=== PATIENT | female | born 1980 | race African-American/Black ===

== ENCOUNTER 2016-10-13 16:01 | Inpatient (IN) | payer MEDICAID ==
[2016-10-13] VITALS (7 sets, daily range): BP systolic 121–167; BP diastolic 57–85; PULSE 50–62; RESP 14; TEMP 98; O2SAT 100
[~2016-10-13] VITALS: Ht 167.6 cm; Wt 77.0 kg
[2016-10-13 16:13] LABS: MEAN CORPUSCULAR HGB CONC 36.2 % (32.0-36.0)
--- NOTE | 2016-10-13 16:20 | PD ---
HPI Chief Complaint: trauma alert Time Seen by Provider: 16:03 Travel History International Travel<30 days: No Contact w/Intl Traveler<30days: No Traveled to known affect area: No History of Present Illness HPI 37 years old female was brought in from home after patient was found unresponsive in the bathroom. EMS was called. Family states that patient collapsed in the bathroom. Family states that no illicit drug involvement. Family reported no history of seizure. Unknown whether patient had head injury upon the fall. Patient very drowsy on the way to the ED. GCS at the scene was 12. Review of Systems ROS Limitations: Altered Mental Status General / Constitutional: No: Fever Eyes: No: Visual changes HENT: No: Headaches Cardiovascular: No: Chest Pain or Discomfort Respiratory: No: Shortness of Breath Gastrointestinal: No: Abdominal Pain Genitourinary: No: Dysuria Musculoskeletal: No: Pain Skin: No Rash Neurologic: No: Weakness Psychiatric: No: Depression Endocrine: No: Polydipsia Hematologic/Lymphatic: No: Easy Bruising Physical Exam Narrative GENERAL: Well-nourished, well-developed patient. SKIN: Focused skin assessment warm/dry. HEAD: Normocephalic. EYES: No scleral icterus. No injection or drainage. Pupils 2 mm equal reactive. NECK: Supple, trachea midline. No JVD or lymphadenopathy. CARDIOVASCULAR: Regular rate and rhythm without murmurs, gallops, or rubs. RESPIRATORY: Breath sounds equal bilaterally. No accessory muscle use. GASTROINTESTINAL: Abdomen soft, non-tender, nondistended. MUSCULOSKELETAL: No cyanosis, or edema. BACK: Nontender without obvious deformity. No CVA tenderness. Neurologic exam: Patient is lethargic, responded to pain stimuli. Patient does not respond to verbal commands. Data Data Last Documented VS Vital Signs Date Time Temp Pulse Resp B/P Pulse Ox O2 Delivery O2 Flow Rate FiO2 10/13/16 16:00 100 Nasal Cannula 2.00 Orders Ed Poc Ultrasound (10/13/16 ) I-Stat Profile (10/13/16 16:11) I-Stat Creatinine (10/13/16 16:11) Complete Blood Count With Diff (10/13/16 16:11) Prothrombin Time / Inr (Pt) (10/13/16 16:11) Act Partial Throm Time (Ptt) (10/13/16 16:11) Type And Screen (10/13/16 16:11) Chest, Single Ap (10/13/16 16:11) Pelvis, Ap Only (Routine) (10/13/16 16:11) Ct Brain W/O Iv Contrast(Rout) (10/13/16 16:11) Ct Cerv Spine W/O Contrast (10/13/16 16:11) Ct Abd/Pel W Iv Contrast(Rout) (10/13/16 16:11) Ct Thorax/ Chest W Iv Contrast (10/13/16 16:11) Iv Access Insert/Monitor (10/13/16 16:11) Ecg Monitoring (10/13/16 16:11) Oximetry (10/13/16 16:11) Oxygen Administration (10/13/16 16:11) Cta Brain W Iv Contrast W 3d (10/13/16 ) Midazolam Inj (Versed Inj) (10/13/16 16:27) Labs Laboratory Tests Test 10/13/16 16:02 White Blood Count 16.4 TH/MM3 Red Blood Count 4.49 MIL/MM3 Hemoglobin 13.1 GM/DL Bedside Hemoglobin 13.6 G/DL Hematocrit 36.1 % Bedside Hematocrit 40.0 % Mean Corpuscular Volume 80.5 FL Mean Corpuscular Hemoglobin 29.2 PG Mean Corpuscular Hemoglobin 36.2 % Concent Red Cell Distribution Width 14.0 % Platelet Count 320 TH/MM3 Mean Platelet Volume 8.7 FL Neutrophils (%) (Auto) 56.6 % Lymphocytes (%) (Auto) 35.2 % Monocytes (%) (Auto) 6.7 % Eosinophils (%) (Auto) 1.2 % Basophils (%) (Auto) 0.3 % Neutrophils # (Auto) 9.3 TH/MM3 Lymphocytes # (Auto) 5.8 TH/MM3 Monocytes # (Auto) 1.1 TH/MM3 Eosinophils # (Auto) 0.2 TH/MM3 Basophils # (Auto) 0.0 TH/MM3 CBC Comment AUTO DIFF Prothrombin Time 11.0 SEC Prothromb Time International 1.0 RATIO Ratio Activated Partial 23.0 SEC Thromboplast Time Bedside Sodium 141 MMOL/L Bedside Potassium 2.6 MMOL/L Bedside Chloride 104 MMOL/L Bedside Blood Urea Nitrogen 8 MG/DL Bedside Creatinine 0.6 MG/DL Bedside Glucose 156 MG/DL MDM Medical Screen Exam Complete: Yes Emergency Medical Condition: Yes Differential Diagnosis Differential diagnosis including head injury, neck injury, chest injury, abdominal injury, extremity injury, CVA, seizure. Narrative Course 37 years old female was found unresponsive and collapsed in the bathroom. GCS in the ED is 11. Procedures Procedure Narrative After the risks and benefits were discussed the following procedure was performed: INTUBATION: The patient was put in optimal position for the procedure. Rapid sequence intubation was initiated by me using 20 milligrams of etomidate IV and 100 milligrams of succinylcholine IV. The patient was intubated with a 7.5 cuffed endotracheal tube. Tube placement was confirmed by visualization of the tube and balloon passing through the cords, capnometry and subsequent chest x- ray. Breath sounds were equal and well aerated bilaterally postintubation. No breath sounds over stomach. Patient tolerated procedure well. Trauma Alert - Level Two Trauma Alert Level Two: Full trauma team activate Time Surgeon Called: 15:50 Diagnosis Diagnosis: Primary Impression: Intracranial hemorrhage Damon Kaba MD Oct 13, 2016 16:20
[2016-10-13 16:24] LABS: AUTOMATED NEUTROPHIL # 9.3 TH/MM3 (1.8-7.7); BASOPHIL % 0.3 % (0.0-2.0); EOSINOPHIL # 0.2 TH/MM3 (0-0.4); EOSINOPHIL % 1.2 % (0.0-4.0); HEMATOCRIT 36.1 % (35.0-46.0); LYMPH % 35.2 % (9.0-44.0); LYMPHOCYTE # 5.8 TH/MM3 (1.0-4.8); MEAN CELL VOLUME 80.5 FL (80.0-100.0); MEAN CORPUSCULAR HEMOGLOBIN 29.2 PG (27.0-34.0); MONO % 6.7 % (0.0-8.0); NEUT % 56.6 % (16.0-70.0); PLATELET COUNT 320 TH/MM3 (150-450); RED BLOOD COUNT 4.49 MIL/MM3 (4.00-5.30); WHITE BLOOD COUNT 16.4 TH/MM3 (4.0-11.0)
[2016-10-13 16:26] LABS: I-STAT POTASSIUM 2.6 MMOL/L (3.5-4.9)
[2016-10-13] MEDS ORDERED: MIDAZOLAM HCL 5 MG/ML VIAL (1 ML) ONE (16:27)
[2016-10-13 16:30] LABS: HEMO FLAGS AUTO DIFF
--- NOTE | 2016-10-13 16:36 | RADRPT ---
EXAM DATE/TIME: 10/13/2016 15:54 [facility] COMPARISON: No previous studies available for comparison. INDICATIONS : Trauma alert, fall in shower, AMS. MEDICAL HISTORY : None. SURGICAL HISTORY : None. ENCOUNTER: Initial ACUITY: 1 day PAIN SCORE: Non-responsive. LOCATION: Bilateral chest FINDINGS: A single view of the chest demonstrates the lungs to be symmetrically aerated without evidence of mas s, infiltrate or effusion. The cardiomediastinal contours are unremarkable. Osseous structures are intact. CONCLUSION: No acute disease. Maco Mason MD on October 13, 2016 at 16:29 Board Certified Radiologist. This report was verified electronically.
--- NOTE | 2016-10-13 16:42 | RADRPT ---
EXAM DATE/TIME: 10/13/2016 15:54 [facility] COMPARISON: No previous studies available for comparison. INDICATIONS : Trauma alert, fall in shower, AMS. MEDICAL HISTORY : None. SURGICAL HISTORY : None. ENCOUNTER: Initial ACUITY: 1 day PAIN SCORE: Non-responsive. LOCATION: Bilateral pelvis. FINDINGS: A single frontal view of the pelvis demonstrates no evidence of fracture. The bony pelvic ring is in tact. Bony mineralization is normal. The soft tissues are intact. CONCLUSION: No acute disease. Maco Mason MD on October 13, 2016 at 16:40 Board Certified Radiologist. This report was verified electronically.
[2016-10-13] MEDS ORDERED: IOHEXOL 350 MG/ML 10 ML VIAL (for RAD DIAG) IV ONE ×3 (16:44→22:31)
[2016-10-13] MEDS ORDERED: MANNITOL INJ 50 ML ONE (16:44)
[2016-10-13] MEDS ORDERED: fentaNYL DRIP 250 ML ONE (16:47)
--- NOTE | 2016-10-13 16:55 | HHI.HP ---
History of Present Illness Primary Care Physician Admission Diagnosis Diagnoses: History of Present Illness 37-year-old female was found down in the in the bathroom by her family. As potential fall with trauma could not be excluded by EMS she was brought in as a trauma alert. She had been hemodynamically normal doing the transfer with a GCS of 11-12. On arrival GCS is 11 ,hemodynamically normal-she was brought after a trauma workup in the trauma bay immediately to CT scan for workup as clinically this appears to be likely medical bleed. Review of Systems ROS Limitations: Clinical Condition, Altered Mental Status, Unresponsive, Uncooperative Past Family Social History Past Medical History cannot be obtained Past Surgical History Cannot be obtained Reported Medications Cannot be obtained Family History cannot be obtained Social History cannot be obtained Physical Exam Vital Signs Vital Signs Date Time Temp Pulse Resp B/P Pulse Ox O2 Delivery O2 Flow Rate FiO2 10/13/16 16:00 100 Nasal Cannula 2.00 Physical Exam GENERAL: This is a well-nourished, well-developed patient, in moderate distress. SKIN: No rashes, ecchymoses or lesions. Cool and dry. HEAD: Atraumatic. Normocephalic. EYES: Pupils equal round and reactive. ENT: Nose without bleeding, purulent drainage or septal hematoma.. Airway patent. NECK: Trachea midline. c collar CARDIOVASCULAR: Regular rate and rhythm without murmurs, gallops, or rubs. RESPIRATORY: Clear to auscultation. Breath sounds equal bilaterally. No wheezes , rales, or rhonchi. GASTROINTESTINAL: Abdomen soft, non-tender, nondistended.. No guarding. MUSCULOSKELETAL: Extremities without clubbing, cyanosis, or edema. No joint tenderness, effusion, or edema noted. NEUROLOGICAL: Awake and alert. gcs 11-fluctuating up to 13 Laboratory Laboratory Tests Test 10/13/16 16:02 White Blood Count 16.4 Red Blood Count 4.49 Hemoglobin 13.1 Bedside Hemoglobin 13.6 Hematocrit 36.1 Bedside Hematocrit 40.0 Mean Corpuscular Volume 80.5 Mean Corpuscular Hemoglobin 29.2 Mean Corpuscular Hemoglobin 36.2 Concent Red Cell Distribution Width 14.0 Platelet Count 320 Mean Platelet Volume 8.7 Neutrophils (%) (Auto) 56.6 Lymphocytes (%) (Auto) 35.2 Monocytes (%) (Auto) 6.7 Eosinophils (%) (Auto) 1.2 Basophils (%) (Auto) 0.3 Neutrophils # (Auto) 9.3 Lymphocytes # (Auto) 5.8 Monocytes # (Auto) 1.1 Eosinophils # (Auto) 0.2 Basophils # (Auto) 0.0 CBC Comment AUTO DIFF Prothrombin Time 11.0 Prothromb Time International 1.0 Ratio Activated Partial 23.0 Thromboplast Time Bedside Sodium 141 Bedside Potassium 2.6 Bedside Chloride 104 Bedside Blood Urea Nitrogen 8 Bedside Creatinine 0.6 Bedside Glucose 156 Blood Type O POSITIVE Result Diagram: 10/13/16 1602 Assessment and Plan Assessment and Plan SAH- secondary due ruptured aneurysm finish CT A brain Patient intubated in CT scan by the EM attending to finish workup no traumatic issues suggest stat NS/IR consult Eleni Martinez MD Oct 13, 2016 16:55
[2016-10-13] MEDS ORDERED: PROPOFOL 1000 MG/100 ML INJ 100 ML ONE (16:56)
--- NOTE | 2016-10-13 17:05 | RADRPT ---
EXAM DATE/TIME: 10/13/2016 16:20 [facility] COMPARISON: No previous studies available for comparison. INDICATIONS : Trauma,fell in shower, unresponsive. IV CONTRAST: 75 cc Omnipaque 350 (iohexol) IV ; Cumulative dose for multiple exams. RADIATION DOSE: 18.18 CTDIvol (mGy) ; Combined studies - Thorax/Abdomen/Pelvis MEDICAL HISTORY : Non-responsive. SURGICAL HISTORY : Non-responsive. ENCOUNTER: Initial ACUITY: 1 day PAIN SCALE: Non-responsive LOCATION: Bilateral chest TECHNIQUE: Volumetric scanning of the chest was performed. Using automated exposure control and adjustment of t he mA and/or kV according to patient size, radiation dose was kept as low as reasonably achievable to obtain optimal diagnostic quality images. DICOM format image data is available electronically for review and comparison. Follow-up recommendations for incidentally detected pulmonary nodules are based at a minimum on nodul e size and patient risk factors according to Fleischner Society Guidelines. FINDINGS: LUNGS: There is no consolidation or pneumothorax. No concerning pulmonary nodule is visualized. PLEURA: There is no pleural thickening or pleural effusion. MEDIASTINUM: The heart and great vessels demonstrate no acute abnormality. There is no mediastinal or hilar lymph adenopathy. AXILLAE: Within normal limits. No lymphadenopathy. SKELETAL: Within normal limits for patient age. MISCELLANEOUS: The visualized upper abdominal organs demonstrate no acute abnormality. CONCLUSION: No acute disease. Bakari Hutchins MD on October 13, 2016 at 17:02 Board Certified Radiologist. This report was verified electronically.
--- NOTE | 2016-10-13 17:06 | RADRPT ---
EXAM DATE/TIME: 10/13/2016 16:20 [facility] COMPARISON: No previous studies available for comparison. INDICATIONS : Trauma, fell in shower, unresponsive. IV CONTRAST: 75 cc Omnipaque 350 (iohexol) IV ; Cumulative dose for multiple exams. ORAL CONTRAST: No oral contrast ingested. RADIATION DOSE: 18.18 CTDIvol (mGy) ; Combined studies - Thorax/Abdomen/Pelvis MEDICAL HISTORY : Non-responsive. SURGICAL HISTORY : Non-responsive. ENCOUNTER: Initial ACUITY: 1 day PAIN SCALE: Non-responsive LOCATION: abdomen/pelvis TECHNIQUE: Volumetric scanning of the abdomen and pelvis was performed. Using automated exposure control and ad justment of the mA and/or kV according to patient size, radiation dose was kept as low as reasonably achievable to obtain optimal diagnostic quality images. DICOM format image data is available electro nically for review and comparison. FINDINGS: LOWER LUNGS: The visualized lower lungs are clear. LIVER: Homogeneous density without lesion. There is no dilation of the biliary tree. No calcified gallston es. SPLEEN: Normal size without lesion. PANCREAS: Within normal limits. KIDNEYS: Normal in size and shape. There is no mass, stone or hydronephrosis. ADRENAL GLANDS: Within normal limits. VASCULAR: There is no aortic aneurysm. BOWEL/MESENTERY: The stomach, small bowel, and colon demonstrate no acute abnormality. There is no free intraperitone al air or fluid. ABDOMINAL WALL: Within normal limits. RETROPERITONEUM: There is no lymphadenopathy. BLADDER: No wall thickening or mass. REPRODUCTIVE: Within normal limits. INGUINAL: There is no lymphadenopathy or hernia. MUSCULOSKELETAL: Within normal limits for patient age. CONCLUSION: No acute disease. Bakari Hutchins MD on October 13, 2016 at 17:04 Board Certified Radiologist. This report was verified electronically.
[2016-10-13 17:09] LABS: BANDS 2 % (0-6); EOSINOPHILS 3 % (0-4); METAMYELOCYTES 1 % (0-1); NEUTROPHIL # MANUAL DIFF 8.7 TH/MM3 (1.8-7.7); PLATELET ESTIMATE SMEAR NORMAL (NORMAL); PLATELET MORPHOLOGY NORMAL (NORMAL); POLYS (SEG NEUTROPHILS) 50 % (16-70); SCAN/DIFF FINAL DIFF MANUAL; WBC DIFF SAMPLE 100
[2016-10-13] MEDS ORDERED: niMODipine 30 MG CAP PO ONE (17:30)
[2016-10-13] MEDS ORDERED: levETIRAcetam 1000 MG INJ 100 ML IV ONE (17:30)
--- NOTE | 2016-10-13 17:33 | RADRPT ---
EXAM DATE/TIME: 10/13/2016 16:14 [facility] COMPARISON: CTA BRAIN W 3D RECON, October 13, 2016, 16:35. INDICATIONS : Found unresponsive in shower. RADIATION DOSE: 35.43 CTDIvol (mGy) MEDICAL HISTORY : Non-responsive. SURGICAL HISTORY : Non-responsive. ENCOUNTER: Initial ACUITY: 1 day PAIN SCALE: Non-responsive LOCATION: cranial TECHNIQUE: Multiple contiguous axial images were obtained of the head. Using automated exposure control and adj ustment of the mA and/or kV according to patient size, radiation dose was kept as low as reasonably a chievable to obtain optimal diagnostic quality images. DICOM format image data is available electro nically for review and comparison. FINDINGS: There is significant subarachnoid blood present in the paramesencephalic cisterns, inter-peduncular c istern, sylvian fissures, inter-hemispheric fissure and some degree of layering over the convexities, more notably on the left than the right. There is no evidence of intracranial mass. There is no defi nite findings to suggest developing infarct. The extracranial structures are grossly intact. CONCLUSION: Diffuse subarachnoid blood. Maco Mason MD on October 13, 2016 at 17:29 Board Certified Radiologist. This report was verified electronically.
--- NOTE | 2016-10-13 17:37 | RADRPT ---
EXAM DATE/TIME: 10/13/2016 16:14 [facility] COMPARISON: No previous studies available for comparison. INDICATIONS : Trauma, fell in shower, unresponsive. RADIATION DOSE: 17.93 CTDIvol (mGy) MEDICAL HISTORY : Non-responsive. SURGICAL HISTORY : Non-responsive. ENCOUNTER: Initial ACUITY: 1 day PAIN SCALE: Non-responsive LOCATION: neck TECHNIQUE: Volumetric scanning of the cervical spine was performed. Multiplanar reconstructions in the sagittal, coronal and oblique axial planes were performed. Using automated exposure control and adjustment o f the mA and/or kV according to patient size, radiation dose was kept as low as reasonably achievable to obtain optimal diagnostic quality images. DICOM format image data is available electronically f or review and comparison. FINDINGS: The alignment is normal. There is no evidence of cervical spine fracture. No bony canal or foraminal stenosis is identified. There is no evidence of paraspinal hematoma. CONCLUSION: No acute bony injury in the cervical spine. Maco Mason MD on October 13, 2016 at 17:34 Board Certified Radiologist. This report was verified electronically.
[2016-10-13 17:39] LABS: BLOOD GAS BASE EXCESS -7.7 mmol/L (-2-2); BLOOD GAS CARBOXYHEMOGLOBIN 0.7 % (0-4); BLOOD GAS HCO3 17 mmol/L (22-26); BLOOD GAS METHEMOGLOBIN 1.1 % (0-2); BLOOD GAS O2 HGB SATURATION 98 % (90-100); BLOOD GAS OXYGEN CONTENT 17.8 Vol % (12.0-20.0); BLOOD GAS PCO2 35 mmHg (38-42); BLOOD GAS PO2 251 mmHg (61-120); BLOOD GAS TOTAL HGB 12.5 G/DL (12.0-16.0); CRITICAL VALUE NO; DRAW SITE RT RADIAL; FIO2 50 %; NUMBER OF ARTERIAL PUNCTURES 1; OXYGEN DEVICE VENTILATOR; STAT NO; TEMP CORR TO 98.6; ULNAR PULSE PRESENT; VENT SETTINGS SEE COMMENTS
--- NOTE | 2016-10-13 17:43 | RADRPT ---
EXAM DATE/TIME: 10/13/2016 16:35 [facility] COMPARISON: No previous studies available for comparison. INDICATIONS : Trauma alert; fell in shower, unresponsive. IV CONTRAST: 75 cc Omnipaque 350 (iohexol) IV RADIATION DOSE: 22.70 CTDIvol (mGy) MEDICAL HISTORY : Non-responsive. SURGICAL HISTORY : Non-responsive. ENCOUNTER: Initial ACUITY: 1 day PAIN SCALE: Non-responsive LOCATION: cranial TECHNIQUE: Volumetric scanning was performed using a multi-row detector CT scanner. The data was post processed with a variety of visualization algorithms including full volume maximum intensity projection, multi -planar sliding thin slab reformation, curved planar reformation, and surface rendering techniques. Using automated exposure control and adjustment of the mA and/or kV according to patient size, radiat ion dose was kept as low as reasonably achievable to obtain optimal diagnostic quality images. DICO M format image data is available electronically for review and comparison. FINDINGS: Significant amount of subarachnoid blood is identified in the basilar cisterns. A small thin tubular projection is noted of the left internal carotid terminus. It measures 1.7 x 3.4 cm in size. Moderate to severe spasm is present throughout the proximal intracranial vessels. There is significan t diminished flow is identified in the left middle cerebral artery vessels. No other extraluminal contrast projections are noted. The right posterior cerebral artery originates from the anterior circulation. Moderate diffuse narrowing of the basilar artery is noted. CONCLUSION: 1. 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 2. Moderate to severe vasospasm worse in the left middle cerebral artery distribution. 3. origin of the right posterior cerebral artery. 4. Mild vasospasm vertebrobasilar circulation. Bakari Hutchins MD on October 13, 2016 at 17:31 Board Certified Radiologist. This report was verified electronically.
[2016-10-13] MEDS ORDERED: niCARdipine INJ 25 MG in SODIUM CHLOR 0.9% 250 ML INJ 250 ML IV SCH (17:45)
[2016-10-13] MEDS ORDERED: fentaNYL 2,500 MCG/NS 250 ML IV SCH (17:45)
[2016-10-13] MEDS ORDERED: PROPOFOL 1000 MG/100 ML IV SCH (17:45)
[2016-10-13] MEDS ORDERED: NOREPINEPHRINE 4 MG/4 ML AMP ONE (17:45)
[2016-10-13] MEDS ORDERED: niCARdipine 20MG/NS PREMIX 200 ML IV SCH (17:45)
--- NOTE | 2016-10-13 18:10 | RADRPT ---
EXAM DATE/TIME: 10/13/2016 16:35 [facility] COMPARISON: CTA BRAIN W 3D RECON, October 13, 2016, 16:35. INDICATIONS : Trauma alert; fell in shower, found unresponsive. IV CONTRAST: 75 cc Omnipaque 350 (iohexol) IV ; Cumulative dose for multiple exams. RADIATION DOSE: 22.70 CTDIvol (mGy) ; Combined studies MEDICAL HISTORY : Non-responsive. SURGICAL HISTORY : Non-responsive. ENCOUNTER: Initial ACUITY: 1 day PAIN SCALE: Non-responsive LOCATION: neck Elevated flow velocities and ICA/CCA ratios have been found to correlate with increased degrees of vessel stenosis, calculated as percentage of diameter relative to a normal segment of distal ICA/CCA. TECHNIQUE: Volumetric scanning was performed using a multirow detector CT scanner. The data was post processed with a variety of visualization algorithms including full-volume maximum intensity projection, multip lanar sliding thin-slab reformation, curved-planar reformation, and surface-rendering techniques. Us ing automated exposure control and adjustment of the mA and/or kV according to patient size, radiatio n dose was kept as low as reasonably achievable to obtain optimal diagnostic quality images. DICOM f ormat image data is available electronically for review and comparison. FINDINGS: AORTIC ARCH: There is a three-vessel origin of the great vessels from the aorta. No evidence of ostial narrowing. RIGHT CAROTID: The common carotid artery is intact. The carotid bulb has a normal configuration without ulceration o r narrowing. The internal carotid artery lumen is smooth without stenosis. The external carotid kevin ry is intact. LEFT CAROTID: The common carotid artery is intact. The carotid bulb has a normal configuration without ulceration or narrowing. The internal carotid artery lumen is smooth without stenosis. The external carotid ar angel is intact. VERTEBRALS: The vertebral arteries have a symmetric diameter. No stenotic lesions are seen. CONCLUSION: Normal examination. Maco Mason MD on October 13, 2016 at 17:38 Board Certified Radiologist. This report was verified electronically.
--- NOTE | 2016-10-13 19:24 | RADRPT ---
EXAM DATE/TIME: 10/13/2016 19:06 [facility] COMPARISON: CHEST SINGLE AP, October 13, 2016, 15:54. INDICATIONS : Central line placement. MEDICAL HISTORY : None. SURGICAL HISTORY : None. ENCOUNTER: Subsequent ACUITY: 1 day PAIN SCORE: Non-responsive. LOCATION: Bilateral chest FINDINGS: Endotracheal tube in satisfactory position. Left central line in superior vena cava. NG enters stomac h. Minimal basal atelectasis. No pneumothorax. CONCLUSION: 1. Support apparatus in satisfactory position. Left central line without pneumothorax. Hamlet Fowler MD on October 13, 2016 at 19:20 Board Certified Radiologist. This report was verified electronically.
[2016-10-13] MEDS ORDERED: POTASSIUM CHLOR 40 MEQ PREMIX 100 ML IV ONE (19:45)
--- NOTE | 2016-10-13 22:18 | PD.CONS ---
History of Present Illness Consult Requested By Primary Care Physician Unknown Diagnoses: History of Present Illness 36-year-old female found down on the bathroom floor by her family at her home, unresponsive. GCS reportedly 11-12 in route to the hospital per EMS as well as in the emergency room prior to intubation in the emergency room. CT scan of the head and CT angiogram of the head and neck accomplished while in the emergency room. Findings discussed with emergency room physician while he undersigned was in the operating room. Following CT angiogram, the radiologist came to the operating room to discuss the findings, which revealed positive subarachnoid hemorrhage and primarily the interpeduncular and chiasmatic cistern, bilateral sylvian fissure and interhemispheric fissure. No significant edema or midline shift. No significant hydrocephalus. CT angiogram with probable thin aneurysmal neck at the terminus of the left internal carotid artery with moderate left MCA spasm. Upon completion of surgical procedure with another patient, undersigned notified of 1 mm difference in pupil size. Upon arrival in the intensive care unit shortly thereafter, patient noted to have rapid further increase in pupil size to 6-7 mm dilated nonreactive. No seizure activity noted. Review of Systems Unable to obtain from patient. Patient has had no recent medical complaints according to the family. Past Family Social History Allergies: Coded Allergies: No Known Allergies (Unverified , 10/14/16) Past Medical History No history of hypertension Past Surgical History No major surgical procedures reported Physical Exam Vital Signs Vital Signs Date Time Temp Pulse Resp B/P Pulse Ox O2 Delivery O2 Flow Rate FiO2 10/13/16 20:13 100 40 10/13/16 20:00 58 14 121/57 100 Automatic Cuff 10/13/16 20:00 50 10/13/16 17:45 98.0 62 14 167/85 100 10/13/16 17:21 100 50 10/13/16 16:50 100 100 10/13/16 16:00 100 Nasal Cannula 2.00 Physical Exam GENERAL: This is a well-nourished, well-developed patient, intubated and sedated on propofol SKIN: No rashes, ecchymoses or lesions. Cool and dry. HEAD: Atraumatic. Normocephalic. No temporal or scalp tenderness. EYES: Sclerae are clear and nonicteric ENT: Intubated. No facial edema or ecchymosis NECK: No nuchal rigidity CARDIOVASCULAR: Regular rate and rhythm without murmurs, gallops, or rubs. RESPIRATORY: Clear to auscultation. Breath sounds equal bilaterally. No wheezes , rales, or rhonchi. GASTROINTESTINAL: Abdomen soft, nondistended MUSCULOSKELETAL: Extremities without edema. Posterior tibial pulse 2+ bilateral NEUROLOGICAL: Patient intubated and sedated on propofol No response to voice or deep pain all extremities No eye opening to deep pain Pupils 6-7 mm nonreactive Absent corneal and oculocephalic response Mild cough response Andres's response absent bilateral No ankle clonus Plantar response is neutral Laboratory Laboratory Tests Test 10/13/16 10/13/16 16:02 17:30 White Blood Count 16.4 Red Blood Count 4.49 Hemoglobin 13.1 Bedside Hemoglobin 13.6 Hematocrit 36.1 Bedside Hematocrit 40.0 Mean Corpuscular Volume 80.5 Mean Corpuscular Hemoglobin 29.2 Mean Corpuscular Hemoglobin 36.2 Concent Red Cell Distribution Width 14.0 Platelet Count 320 Mean Platelet Volume 8.7 Neutrophils (%) (Auto) 56.6 Lymphocytes (%) (Auto) 35.2 Monocytes (%) (Auto) 6.7 Eosinophils (%) (Auto) 1.2 Basophils (%) (Auto) 0.3 Neutrophils # (Auto) 9.3 Lymphocytes # (Auto) 5.8 Monocytes # (Auto) 1.1 Eosinophils # (Auto) 0.2 Basophils # (Auto) 0.0 CBC Comment AUTO DIFF Differential Total Cells 100 Counted Neutrophils % (Manual) 50 Band Neutrophils % 2 Lymphocytes % 39 Monocytes % 5 Eosinophils % 3 Neutrophils # (Manual) 8.7 Metamyelocytes 1 Differential Comment FINAL DIFF MANUAL Platelet Estimate NORMAL Platelet Morphology Comment NORMAL Prothrombin Time 11.0 Prothromb Time International 1.0 Ratio Activated Partial 23.0 Thromboplast Time Bedside Sodium 141 Bedside Potassium 2.6 Bedside Chloride 104 Bedside Blood Urea Nitrogen 8 Bedside Creatinine 0.6 Bedside Glucose 156 Magnesium Level 2.1 Blood Type O POSITIVE Antibody Screen NEGATIVE Blood Gas Puncture Site RT RADIAL Blood Gas Patient Temperature 98.6 Blood Gas HCO3 17 Blood Gas Base Excess -7.7 Blood Gas Oxygen Saturation 98 Arterial Blood pH 7.32 Arterial Blood Partial 35 Pressure CO2 Arterial Blood Partial 251 Pressure O2 Arterial Blood Oxygen Content 17.8 Arterial Blood 0.7 Carboxyhemoglobin Arterial Blood Methemoglobin 1.1 Blood Gas Hemoglobin 12.5 Oxygen Delivery Device VENTILATOR Blood Gas Ventilator Setting SEE COMMENTS Blood Gas Inspired Oxygen 50 Result Diagram: 10/13/16 1602 Imaging 10/13/16 CT scan head and cervical spine, and CT angiogram head and neck images are reviewed with radiology. Pelvis X-Ray 10/13/161610 Signed Impressions: Service Date/Time: Thursday, October 13, 2016 15:54 - CONCLUSION: No acute disease. Maco Mason MD Head CT 10/13/161610 Signed Impressions: Service Date/Time: Thursday, October 13, 2016 16:14 - CONCLUSION: Diffuse subarachnoid blood. Maco Mason MD Chest X-Ray 10/13/161610 Signed Impressions: Service Date/Time: Thursday, October 13, 2016 15:54 - CONCLUSION: No acute disease. Maco Mason MD Chest CT 10/13/161610 Signed Impressions: Service Date/Time: Thursday, October 13, 2016 16:20 - CONCLUSION: No acute disease. Bakari Hutchins MD Cervical Spine CT 10/13/161610 Signed Impressions: Service Date/Time: Thursday, October 13, 2016 16:14 - CONCLUSION: No acute bony injury in the cervical spine. Maco Mason MD Abdomen/Pelvis CT 10/13/161610 Signed Impressions: Service Date/Time: Thursday, October 13, 2016 16:20 - CONCLUSION: No acute disease. Bakari Hutchins MD Neck CTA 10/13/16 0000 Signed Impressions: Service Date/Time: Thursday, October 13, 2016 16:35 - CONCLUSION: Normal examination. Maco Mason MD Head CTA 10/13/16 0000 Signed Impressions: Service Date/Time: Thursday, October 13, 2016 16:35 - CONCLUSION: 1. Small tubular aneurysm projecting off the left internal carotid terminus characteristic of a recently ruptured aneurysm which may be partially thrombosed. 2. Moderate to severe vasospasm worse in the left middle cerebral artery distribution. 3. origin of the right posterior cerebral artery. 4. Mild vasospasm vertebrobasilar circulation. Bakari Hutchins MD Assessment and Plan Assessment and Plan Impression: Subarachnoid hemorrhage. 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 Patient is likely to have additional thrombosed aneurysm. Moderate MCA vasospasm on initial CT angiogram. Patient with subsequent rapid change in neurologic exam in the intensive care unit, with rapid progression to fixed dilated pupils. Recommendations: Findings were discussed with the patient's family in intensive surgical care unit. Advised proceeding with ventriculostomy placement in [facility] followed by follow-up CT scan of the head and CT angiogram. The procedure of ventriculostomy placement indications discussed with the patient's . Risks and possible complications discussed. Consent signed and witnessed in the intensive surgical care unit. Initial ventriculostomy placement 2 sites unsuccessful. Dictated separately. Patient taken emergently for follow-up CT scan of the head and CT angiogram of the brain. The CT scan of the head reveals early loss of reese-white interface in both hemispheres primarily along the temporal occipital region. The CT angiogram preliminary results indicates loss of blood flow past the level of the proximal carotid arteries and basilar artery. Findings suggest severe diffuse vasospasm. Discussed with hat presser. Maintain permissive hypertension despite uncontrolled aneurysm. Patient was not felt to be a candidate for endovascular procedure at this institution per initial discussion with radiology. Prior to significant neurologic exam changes, transferred to tertiary care center was anticipated. However due to the patient's extremely poor clinical status and lack of significant cerebral blood flow on follow-up CT angiogram, she is not felt to be stable for transfer or for further interventional treatment. Eder Cristina MD Oct 13, 2016 22:18
--- NOTE | 2016-10-13 22:36 | RADRPT ---
EXAM DATE/TIME: 10/13/2016 22:16 [facility] COMPARISON: No previous studies available for comparison. INDICATIONS : F/U subarachnoid bleed. RADIATION DOSE: 56.35 CTDIvol (mGy) MEDICAL HISTORY : Non-responsive. SURGICAL HISTORY : Non-responsive. ENCOUNTER: Initial ACUITY: 1 day PAIN SCALE: 0/10 LOCATION: cranial TECHNIQUE: Multiple contiguous axial images were obtained of the head. Using automated exposure control and adj ustment of the mA and/or kV according to patient size, radiation dose was kept as low as reasonably a chievable to obtain optimal diagnostic quality images. DICOM format image data is available electro nically for review and comparison. FINDINGS: Comparison is October 13, 1613. Compared with the exam from earlier today there is an increase in subar achnoid hemorrhage seen the basilar and perimesencephalic cisterns extending into the middle cranial fossa bilaterally and into both sylvian fissures and over both convexities including into the interhe mispheric region. There is also trace intra-ventricular hemorrhage. There is a questionable evolving infarct in the left hemisphere predominantly in the left MCA distribution. There is some brain swelli ng and slight decrease in ventricular size. CONCLUSION: 1. There is increase in subarachnoid hemorrhage since exam from earlier today with an increase in bra in swelling and the decrease in ventricular size. Questionable evolving infarct left MCA distribution . Small amount of intraventricular hemorrhage. Hamlet Fowler MD on October 13, 2016 at 22:28 Board Certified Radiologist. This report was verified electronically.
--- NOTE | 2016-10-13 22:54 | PD.CONS ---
[facility] Service Critical Care Medicine Consult Requested By Dr. Rivero Reason for Consult altered mental status Primary Care Physician Unknown History of Present Illness This is a 36yF who presents as a Andra Carnes for altered mental status. she was reportedly found in her bathroom unresponsive. she was initially brought in as a trauma alert. CT brain demonstrated Blackwood 4 SAH. she was transferred to the ICU intubated, hypertensive. I evaluated the patient on arrival to the ICU ( delayed note entry). she is unable to provide any additional history. Review of Systems ROS Limitations: Clinical Condition, Intubated, Altered Mental Status, Unresponsive Past Family Social History Allergies: Coded Allergies: UNOBTAINABLE (Unverified , 10/13/16) Past Medical History unknown and unobtainable secondary to the clinical condition of the patient. Past Surgical History unknown and unobtainable secondary to the clinical condition of the patient. Reported Medications unknown and unobtainable secondary to the clinical condition of the patient. Active Ordered Medications See MAR Family History unknown and unobtainable secondary to the clinical condition of the patient. Social History unknown and unobtainable secondary to the clinical condition of the patient. Physical Exam Vital Signs Vital Signs Date Time Temp Pulse Resp B/P Pulse Ox O2 Delivery O2 Flow Rate FiO2 10/13/16 20:13 100 40 10/13/16 20:00 58 14 121/57 100 Automatic Cuff 10/13/16 20:00 50 10/13/16 17:45 98.0 62 14 167/85 100 10/13/16 17:21 100 50 10/13/16 16:50 100 100 10/13/16 16:00 100 Nasal Cannula 2.00 Physical Exam Middle-aged male, lying in bed, unresponsive, intubated Pupils sluggishly reactive, equal, conjugate Equal chest rise. PRvC. FiO2 40%. GCS 3, RASS -5. Does not withdraw to pain. Does not follow commands. Laboratory Laboratory Tests Test 10/13/16 10/13/16 16:02 17:30 White Blood Count 16.4 Red Blood Count 4.49 Hemoglobin 13.1 Bedside Hemoglobin 13.6 Hematocrit 36.1 Bedside Hematocrit 40.0 Mean Corpuscular Volume 80.5 Mean Corpuscular Hemoglobin 29.2 Mean Corpuscular Hemoglobin 36.2 Concent Red Cell Distribution Width 14.0 Platelet Count 320 Mean Platelet Volume 8.7 Neutrophils (%) (Auto) 56.6 Lymphocytes (%) (Auto) 35.2 Monocytes (%) (Auto) 6.7 Eosinophils (%) (Auto) 1.2 Basophils (%) (Auto) 0.3 Neutrophils # (Auto) 9.3 Lymphocytes # (Auto) 5.8 Monocytes # (Auto) 1.1 Eosinophils # (Auto) 0.2 Basophils # (Auto) 0.0 CBC Comment AUTO DIFF Differential Total Cells 100 Counted Neutrophils % (Manual) 50 Band Neutrophils % 2 Lymphocytes % 39 Monocytes % 5 Eosinophils % 3 Neutrophils # (Manual) 8.7 Metamyelocytes 1 Differential Comment FINAL DIFF MANUAL Platelet Estimate NORMAL Platelet Morphology Comment NORMAL Prothrombin Time 11.0 Prothromb Time International 1.0 Ratio Activated Partial 23.0 Thromboplast Time Bedside Sodium 141 Bedside Potassium 2.6 Bedside Chloride 104 Bedside Blood Urea Nitrogen 8 Bedside Creatinine 0.6 Bedside Glucose 156 Magnesium Level 2.1 Blood Type O POSITIVE Antibody Screen NEGATIVE Blood Gas Puncture Site RT RADIAL Blood Gas Patient Temperature 98.6 Blood Gas HCO3 17 Blood Gas Base Excess -7.7 Blood Gas Oxygen Saturation 98 Arterial Blood pH 7.32 Arterial Blood Partial 35 Pressure CO2 Arterial Blood Partial 251 Pressure O2 Arterial Blood Oxygen Content 17.8 Arterial Blood 0.7 Carboxyhemoglobin Arterial Blood Methemoglobin 1.1 Blood Gas Hemoglobin 12.5 Oxygen Delivery Device VENTILATOR Blood Gas Ventilator Setting SEE COMMENTS Blood Gas Inspired Oxygen 50 Result Diagram: 10/13/16 160 Imaging Last Impressions Pelvis X-Ray 10/13/161610 Signed Impressions: Service Date/Time: Thursday, October 13, 2016 15:54 - CONCLUSION: No acute disease. Maco Mason MD Head CT 10/13/161610 Signed Impressions: Service Date/Time: Thursday, October 13, 2016 16:14 - CONCLUSION: Diffuse subarachnoid blood. Maco Mason MD Chest X-Ray 10/13/161610 Signed Impressions: Service Date/Time: Thursday, October 13, 2016 15:54 - CONCLUSION: No acute disease. Maco Mason MD Chest CT 10/13/161610 Signed Impressions: Service Date/Time: Thursday, October 13, 2016 16:20 - CONCLUSION: No acute disease. Bakari Hutchins MD Cervical Spine CT 10/13/161610 Signed Impressions: Service Date/Time: Thursday, October 13, 2016 16:14 - CONCLUSION: No acute bony injury in the cervical spine. Maco Mason MD Abdomen/Pelvis CT 10/13/16 1611 Signed Impressions: Service Date/Time: Thursday, October 13, 2016 16:20 - CONCLUSION: No acute disease. Bakari Hutchins MD Neck CTA 10/13/16 0000 Signed Impressions: Service Date/Time: Thursday, October 13, 2016 16:35 - CONCLUSION: Normal examination. Maco Mason MD Head CTA 10/13/16 0000 Signed Impressions: Service Date/Time: Thursday, October 13, 2016 16:35 - CONCLUSION: 1. Small tubular aneurysm projecting off the left internal carotid terminus characteristic of a recently ruptured aneurysm which may be partially thrombosed. 2. Moderate to severe vasospasm worse in the left middle cerebral artery distribution. 3. origin of the right posterior cerebral artery. 4. Mild vasospasm vertebrobasilar circulation. Bakari Hutchins MD Assessment and Plan Assessment and Plan Assessment: 36-year-old female post-bleed day 0 status post Jones-Victoria 5, Blackwood 4 aneurysmal subarachnoid hemorrhage. severely critically ill at this time. will start anti-hypertensives, goal sbp < 140. will obtain CTA head/neck, discuss with Dr. Cristina and Dr. Mason. Active Problems: Aneurysmal subarachnoid hemorrhage, Jones-Victoria 5, Blackwood 4 Acute encephalopathy Acute hypoxic and hypercarbic respiratory failure Hypertensive Emergency Plan: admit to ICU goal sbp < 140 nimodipine daily tcds cta head/neck no weaning of mechanical ventilation today. goal spo2 > 90%, hob at [address] art line, central line cardene for target bp dr. Cristina following Critical Care time: 57 minutes, exclusive of separately billable procedures Alexys Rudd MD Oct 13, 2016 22:54
--- NOTE | 2016-10-13 22:55 | PD.PROCEDR ---
Procedure Note Procedure Procedure: Arterial Line Placement Left radial arterial line Diagnosis: Subarachnoid hemorrhage Indications: Need for beat to beat hemodynamic monitoring Consent: Emergent Description of the Procedure: The left wrist was prepped and draped sterilely. 1% lidocaine was used for local anesthesia. Ultrasound guidance was used to locate the left radial artery. The vascular anatomy of the left wrist was normal. Under direct real-time visualization, the artery was cannulated. The pulse was located and a needle was advanced into the artery. A 20 gauge, 12 cm catheter was advanced into the artery using a modified Seldinger technique. The catheter was sutured to the skin and a sterile dressing was applied. The catheter was connected to a pressure transducer and an arterial waveform was noted. There were no immediate complications noted. There was minimal EBL. I personally performed the procedure. Alexys Rudd MD Oct 13, 2016 22:55
--- NOTE | 2016-10-13 22:56 | PD.PROCEDR ---
Procedure Note Procedure Central Line Procedure Note Left subclavian triple lumen catheter Diagnosis: Subarachnoid hemorrhage Indications: Need for highly potent vasoactive substances Consent: Emergent Anesthesia: None Description of the Procedure: The patient was placed in the supine, mild- Trendelenburg position. The area was prepped and draped sterilely. A 19g needle was inserted under negative pressure aspiration and dark venous blood was obtained. A guidewire was inserted easily without resistance. A small incision was made using a #11 blade. Using a modified Seldinger technique, the dilator and 7 [place], 20 cm catheter were advanced over the guidewire without resistance. All ports were aspirated and flushed, and had brisk blood return. The line was secured at 20 centimeter at the skin using 2-0 silk interrupted sutures. A Biopatch and Transparent sterile dressing were applied. There were no immediate complications noted. There was minimal EBL. The patient tolerated the procedure well. A Chest x-ray has been ordered. I personally performed the procedure. Alexys Rudd MD Oct 13, 2016 22:56
--- NOTE | 2016-10-13 23:27 | RADRPT ---
EXAM DATE/TIME: 10/13/2016 22:19 This report includes an Addendum and supersedes previous reports for this exam. [facility] COMPARISON: CTA BRAIN W 3D RECON, October 13, 2016, 16:35. INDICATIONS : F/U subarachoid bleed. IV CONTRAST: 75 cc Omnipaque 350 (iohexol) IV RADIATION DOSE: 19.74 CTDIvol (mGy) MEDICAL HISTORY : Non-responsive. SURGICAL HISTORY : Non-responsive. ENCOUNTER: Initial ACUITY: 1 day PAIN SCALE: Non-responsive LOCATION: cranial TECHNIQUE: Volumetric scanning was performed using a multi-row detector CT scanner. The data was post processed with a variety of visualization algorithms including full volume maximum intensity projection, multi -planar sliding thin slab reformation, curved planar reformation, and surface rendering techniques. Using automated exposure control and adjustment of the mA and/or kV according to patient size, radiat ion dose was kept as low as reasonably achievable to obtain optimal diagnostic quality images. DICO M format image data is available electronically for review and comparison. FINDINGS: Source images from a CT angiogram of the intracranial circulation are provided and demonstrate diffus e subarachnoid hemorrhage greatest in the suprasellar region and left sylvian fissure and MCA region, basilar cisterns. No obvious mass. No midline shift. No fractures. CONCLUSION: 1. Subarachnoid hemorrhage. Limited study. Doug Mariano MD on October 13, 2016 at 23:25 Board Certified Radiologist. This report was verified electronically. ADDENDUM: There is contrast identified within the distal vertebral arteries and basilar artery as well as the P etrus and cavernous internal carotid arteries. Contrast flow within the vasculature distal to this po int is not clearly seen. Doug Mariano MD on October 13, 2016 at 23:29 Board Certified Radiologist. This report was verified electronically.
[2016-10-14] VITALS (18 sets, daily range): BP systolic 102–167; BP diastolic 53–99; PULSE 102–133; RESP 14; TEMP 94.5–97.2; O2SAT 99–100
[2016-10-14] MEDS: SODIUM CHLOR 0.9% 1000 ML INJ 1,000 ML IV SCH ×5 (00:59→20:13)
[2016-10-14] MEDS ORDERED: BISACODYL 10 MG SUPP RECTAL PRN (01:00)
[2016-10-14] MEDS ORDERED: SODIUM CHLORIDE 0.9% FLUSH 10 ML FLUSH IV FLUSH PRN (01:00)
[2016-10-14] MEDS ORDERED: ONDANSETRON HCL 4 MG/2 ML VIAL IV PRN (01:00)
[2016-10-14] MEDS ORDERED: levETIRAcetam INJ 500 MG in SODIUM CHLORIDE 0.9% INJ 100 ML IV ONE (01:00)
[2016-10-14] MEDS ORDERED: ACETAMINOPHEN 325 MG TAB PO PRN (01:00)
[2016-10-14] MEDS ORDERED: MISCELLANEOUS NURSING INFORMATION XX SCH (01:00)
[2016-10-14] MEDS ORDERED: MAGNESIUM HYDROXIDE SUSP 30 ML CUP PO PRN (01:00)
[2016-10-14] MEDS ORDERED: LACTULOSE SYRUP 20 GM/30 ML CUP PO PRN (01:00)
[2016-10-14] MEDS ORDERED: SENNOSIDES 8.6 MG TAB PO PRN (01:00)
[2016-10-14] MEDS ORDERED: RESP: ALBUTEROL 2.5 MG/3 ML NEB (PRN) INH (01:00)
[2016-10-14] MEDS ORDERED: CHLORHEXIDINE GLUCONATE 2 % 1 PACK (2 CLOTHS) TOP PRN (01:00)
--- NOTE | 2016-10-14 01:05 | PD.OP ---
Operative Report Date of Surgery: Oct 13, 2016 Preoperative Diagnosis: (1) Subarachnoid hemorrhage Subarachnoid hemorrhage Postoperative Diagnosis: (1) Subarachnoid hemorrhage Subarachnoid hemorrhage Procedure: Right frontal twist drill for attempted ventriculostomy placement Anesthesia: Intravenous sedation 1% Xylocaine local anesthetic Surgeon: Eder [facility] Rn(s): None Operation and Findings: Indications: 36-year-old female with subarachnoid hemorrhage. No significant hydrocephalus on initial CT scan. Patient with rapid decline in neurologic status with fixed dilated pupils. Due to possibility of progressive hydrocephalus, ventriculostomy catheter placement advised pending follow-up CT and CT angiogram of the brain. Discussed with the patient's family. Procedure, indications, risks and possible complications fully discussed. Consent signed and witnessed in the intensive surgical care unit. The procedure was performed in the surgical intensive care unit. Appropriate timeout procedure was performed with all personnel present and in agreement The patient was placed in supine position with the head and neck in neutral position and the head of the bed elevated approximately 20. The right frontal region was shaved with clippers and sterilely prepped and draped. One percent Xylocaine without epinephrine was used for local infiltration over the small incision site which was made approximately 9-10 cm above the right supraorbital rim, approximately 3-1/2 to 4 cm lateral to the midline, in the mid pupillary line just anterior to the coronal suture. The hand drill was used to make a single twist drill opening in the cranium and the dura was perforated with the trocar. The Codman Bactiseal ventriculostomy catheter was advanced to a depth of 6-7 cm intracranial in 2 separate trajectories with no return of CSF. In order to ensure proper catheter positioning, a second small twist drill opening was made approximately 2 cm medial and posterior to the twist drill opening and the catheter was again passed in 2 separate trajectories without any CSF obtained. The incision was closed with 3-0 nylon suture interrupted. The patient proceeded directly to radiology for CT and CT angiogram of the brain following the procedure. The patient's neurologic exam remained stable following the procedure No specimen was sent There was no significant bleeding Eder Cristina MD Oct 14, 2016 01:05
[2016-10-14 01:06] LABS: BICARBONATE 18.9 MEQ/L (21.0-32.0); MAGNESIUM 2.5 MG/DL (1.5-2.5); POTASSIUM 3.7 MEQ/L (3.5-5.1)
[2016-10-14] MEDS: niMODipine 30 MG CAP PO SCH ×6 (01:49→20:00)
[2016-10-14] MEDS: DESMOPRESSIN ACETATE 4 MCG/ML VIAL SQ SCH ×3 (02:15→20:08)
[2016-10-14] MEDS ORDERED: SODIUM CHLOR 0.9% 1000 ML INJ 1,000 ML IV ONE (02:45)
[2016-10-14] MEDS ORDERED: POTASSIUM PHOSPHATE INJ 15 MMOL in SODIUM CHLORIDE 0.9% INJ 150 ML IV ONE (03:00)
[2016-10-14] MEDS: NOREPINEPHRINE 4 MG/D5W 250 ML IV SCH ×2 (03:00→05:06)
[2016-10-14] MEDS: CHLORHEXIDINE GLUCONATE 2 % 1 PACK (2 CLOTHS) TOP SCH (04:00)
[2016-10-14] MEDS: niMODipine 30 MG CAP NG SCH ×5 (04:20→20:05)
[2016-10-14] MEDS: EPINEPHrine (1:1000) INJ 2 MG in SODIUM CHLOR 0.9% 250 ML INJ 250 ML IV SCH ×4 (05:06→17:00)
[2016-10-14 06:46] LABS: HEMATOCRIT 38.2 % (35.0-46.0); MEAN CELL VOLUME 81.2 FL (80.0-100.0); MEAN CORPUSCULAR HGB CONC 34.5 % (32.0-36.0); PLATELET COUNT 324 TH/MM3 (150-450); RED BLOOD COUNT 4.71 MIL/MM3 (4.00-5.30); RED CELL DISTRIBUTION WIDTH 14.6 % (11.6-17.2); REVIEW FLAG FINAL; WHITE BLOOD COUNT 20.3 TH/MM3 (4.0-11.0)
[2016-10-14 07:31] LABS: BICARBONATE 17.6 MEQ/L (21.0-32.0); MAGNESIUM 2.1 MG/DL (1.5-2.5); POTASSIUM 3.4 MEQ/L (3.5-5.1)
[2016-10-14] MEDS ORDERED: NOREPINEPHRINE 4 MG/4 ML AMP ONE (08:17)
[2016-10-14] MEDS: PANTOPRAZOLE SODIUM 40 MG VIAL IV SCH (08:38)
[2016-10-14] MEDS: levETIRAcetam INJ 500 MG in SODIUM CHLORIDE 0.9% INJ 100 ML IV SCH ×2 (08:38→20:05)
[2016-10-14] MEDS: DOCUSATE SODIUM 50 MG/SENNA 8.6 MG TAB PO SCH ×2 (08:39→20:06)
[2016-10-14] MEDS: ARTIFICIAL TEARS OPTH SOLN 15 ML BTL EACH EYE SCH ×3 (09:00→18:00)
[2016-10-14] MEDS ORDERED: levETIRAcetam INJ 500 MG in SODIUM CHLORIDE 0.9% INJ 100 ML IV SCH (09:00)
[2016-10-14] MEDS: SODIUM CHLORIDE 0.9% FLUSH 10 ML FLUSH IV FLUSH SCH ×2 (09:00→20:12)
[2016-10-14] MEDS ORDERED: [UNRECOGNIZED DRUG - OTHER] IV ONE (09:15)
[2016-10-14] MEDS: NOREPINEPHRINE INJ 4 MG in SODIUM CHLOR 0.9% 250 ML INJ 250 ML IV SCH ×8 (09:22→20:54)
[2016-10-14] MEDS ORDERED: ICU - MAGNESIUM SULFATE 2 GM/NS 100 ML IV PRN ×2 (09:45)
[2016-10-14] MEDS ORDERED: ICU - CALL ORDERING PHYSICIAN PRN (09:45)
[2016-10-14] MEDS ORDERED: ICU - POTASSIUM PHOSPHATE MONOBASIC 500 MG TAB PO PRN (09:45)
[2016-10-14] MEDS ORDERED: ICU - MAGNESIUM OXIDE 400 MG TAB PO PRN (09:45)
[2016-10-14] MEDS ORDERED: ICU - SODIUM PHOSPHATE 30 MMOL/NS 250 ML IV PRN ×2 (09:45)
[2016-10-14] MEDS ORDERED: ICU - POTASSIUM CHLORIDE/AQUEOUS SOLN 20 MEQ/100 ML IVPB IV PRN (09:45)
[2016-10-14] MEDS ORDERED: ICU - POTASSIUM PHOSPHATE 30 MMOL/NS 250 ML IV PRN ×2 (09:45)
[2016-10-14] MEDS ORDERED: ICU - MAGNESIUM SULFATE 4 GM/NS 100 ML IV PRN ×2 (09:45)
[2016-10-14] MEDS ORDERED: ICU - D/C ICU ELECTROLYTE ORDERS PRN (09:45)
[2016-10-14] MEDS ORDERED: INFLUENZA VIRUS VACCINE (QUADRIVALENT) 0.5 ML SYR IM ONE (10:00)
[2016-10-14] MEDS: POTASSIUM CHLORIDE 25 MEQ EFFERVESCENT TAB PO PRN ×2 (10:35→16:55)
--- NOTE | 2016-10-14 15:06 | HHI.NSPN ---
(Dennis Catalan) History Chief Complaint: Unable to obtain due to patient's clinical condition. Unable to obtain due (Dennis Catalan) Interval History 10/13: 36-year-old female found down on the bathroom floor by her family at her home, unresponsive. GCS reportedly 11-12 in route to the hospital per EMS as well as in the emergency room prior to intubation in the emergency room. CT scan of the head and CT angiogram of the head and neck accomplished while in the emergency room. Findings discussed with emergency room physician while he undersigned was in the operating room. Following CT angiogram, the radiologist came to the operating room to discuss the findings, which revealed positive subarachnoid hemorrhage and primarily the interpeduncular and chiasmatic cistern, bilateral sylvian fissure and interhemispheric fissure. No significant edema or midline shift. No significant hydrocephalus. CT angiogram with probable thin aneurysmal neck at the terminus of the left internal carotid artery with moderate left MCA spasm. Upon completion of surgical procedure with another patient, undersigned notified of 1 mm difference in pupil size. Upon arrival in the intensive care unit shortly thereafter, patient noted to have rapid further increase in pupil size to 6-7 mm dilated nonreactive. No seizure activity noted. 10/14: The patient remains intubated and on mechanical ventilation. Nursing reports that she has been unresponsive. She is not on any drips for sedation. Epinephrine and norepinephrine drips are infusing for blood pressure control. ( Dennis Catalan) System Review Comments Unable to obtain due to patient's clinical condition. Unable to obtain due ( Dennis Catalan) Exam Results Vital Signs Date Time Temp Pulse Resp B/P Pulse Ox O2 Delivery O2 Flow Rate FiO2 10/14/16 14:00 123 10/14/16 12:00 97.2 14 158/86 100 10/14/16 11:19 40 10/14/16 07:00 Mechanical Ventilator 10/13/16 16:00 2.00 Intake and Output 10/13/16 10/13/16 10/14/16 08:00 16:00 00:00 Intake Total 224 ml Output Total 1700 ml Balance -1476 ml (Dennis Catalan) Physical Examination GENERAL: Patient is intubated and nonresponsive w/o any sedation. SKIN: Warm, dry & intact, no evident discolouration, rashes, ulcerations or other lesions. HEENT: Right frontal scalp ventriculostomy insertion site w/o any active drainage, erythema or streaking. Pupils fixed & dilated. Orally intubated. OGT. NECK: No JVD, trachea midline. CARDIOVASCULAR: S1S2 w/regular but rapid rate w/o M/G/R, radial & pedal pulses 2 + bilaterally, cap refill < 2 sec, no pedal edema. Monitor is sinus tachycardia w/o any ectopy noted. Epinephrine and norepinephrine drips are infusing for blood pressure control. RESPIRATORY: CTAB w/o W/R/R, equal excursion, nonlaboured, intubated & mechanically ventilated. GASTROINTESTINAL: Abdomen soft, bowel sounds not appreciated, OGT w/enteral feeds. MUSCULOSKELETAL: No evident deformity or clubbing note. NEUROLOGICAL: Intubated w/o sedation, GCS 3T (E1 V1T M1) No response to voice. No response to noxious stimuli to all extremities. No eye opening. Pupils 6 mm nonreactive. Neutral plantar response bilaterally. No cough reflex. (Dennis Catalan) Lab, Micro, Other Results Allergies Coded Allergies Type Severity Reaction Last Updated Verified No Known Allergies 10/14/16 No Recent Impressions Pelvis X-Ray 10/13/161610 Signed Impressions: Service Date/Time: Thursday, October 13, 2016 15:54 - CONCLUSION: No acute disease. Maco Mason MD Head CT 10/13/161610 Signed Impressions: Service Date/Time: Thursday, October 13, 2016 16:14 - CONCLUSION: Diffuse subarachnoid blood. Maco Mason MD Chest X-Ray 10/13/161610 Signed Impressions: Service Date/Time: Thursday, October 13, 2016 15:54 - CONCLUSION: No acute disease. Maco Mason MD Chest CT 10/13/161610 Signed Impressions: Service Date/Time: Thursday, October 13, 2016 16:20 - CONCLUSION: No acute disease. Bakari Hutchins MD Cervical Spine CT 10/13/161 Signed Impressions: Service Date/Time: Thursday, October 13, 2016 16:14 - CONCLUSION: No acute bony injury in the cervical spine. Maco Mason MD Abdomen/Pelvis CT 10/13/16 1611 Signed Impressions: Service Date/Time: Thursday, October 13, 2016 16:20 - CONCLUSION: No acute disease. Bakari Hutchins MD Neck CTA 10/13/16 0000 Signed Impressions: Service Date/Time: Thursday, October 13, 2016 16:35 - CONCLUSION: Normal examination. Maco Mason MD Head CTA 10/13/16 0000 Signed Impressions: Service Date/Time: Thursday, October 13, 2016 22:19 - CONCLUSION: 1. Subarachnoid hemorrhage. Limited study. Doug Mariano MD ADDENDUM: There is contrast identified within the distal vertebral arteries and basilar artery as well as the Yasemin and cavernous internal carotid arteries. Contrast flow within the vasculature distal to this point is not clearly seen. Doug Mariano MD Head CTA 10/13/16 0000 Signed Impressions: Service Date/Time: Thursday, October 13, 2016 16:35 - CONCLUSION: 1. Small tubular aneurysm projecting off the left internal carotid terminus characteristic of a recently ruptured aneurysm which may be partially thrombosed. 2. Moderate to severe vasospasm worse in the left middle cerebral artery distribution. 3. origin of the right posterior cerebral artery. 4. Mild vasospasm vertebrobasilar circulation. Bakari Hutchins MD Head CT 10/13/16 0000 Signed Impressions: Service Date/Time: Thursday, October 13, 2016 22:16 - CONCLUSION: 1. There is increase in subarachnoid hemorrhage since exam from earlier today with an increase in brain swelling and the decrease in ventricular size. Questionable evolving infarct left MCA distribution. Small amount of intraventricular hemorrhage. Hamlet Fowler MD Chest X-Ray 10/13/16 0000 Signed Impressions: Service Date/Time: Thursday, October 13, 2016 19:06 - CONCLUSION: 1. Support apparatus in satisfactory position. Left central line without pneumothorax. Hamlet Fowler MD // 06:00 18:00 06:00 18:00 06:00 18:00 Intake Total 878 ml 5634 ml Output Total 4550 ml 4450 ml Balance -3672 ml 1184 ml Intake IV Total 502 ml 5434 ml Tube Feeding 316 ml Tube Irrigant 200 ml Other 60 ml Output Urine Total 4550 ml 4450 ml # Bowel Movements 0 0 Laboratory Tests Test 10/13/16 10/13/16 10/13/16 10/14/16 16:02 17:30 17:35 00:10 White Blood Count 16.4 TH/MM3 Red Blood Count 4.49 MIL/MM3 Hemoglobin 13.1 GM/DL Bedside Hemoglobin 13.6 G/DL Hematocrit 36.1 % Bedside Hematocrit 40.0 % Mean Corpuscular Volume 80.5 FL Mean Corpuscular Hemoglobin 29.2 PG Mean Corpuscular Hemoglobin 36.2 % Concent Red Cell Distribution Width 14.0 % Platelet Count 320 TH/MM3 Mean Platelet Volume 8.7 FL Neutrophils (%) (Auto) 56.6 % Lymphocytes (%) (Auto) 35.2 % Monocytes (%) (Auto) 6.7 % Eosinophils (%) (Auto) 1.2 % Basophils (%) (Auto) 0.3 % Neutrophils # (Auto) 9.3 TH/MM3 Lymphocytes # (Auto) 5.8 TH/MM3 Monocytes # (Auto) 1.1 TH/MM3 Eosinophils # (Auto) 0.2 TH/MM3 Basophils # (Auto) 0.0 TH/MM3 CBC Comment AUTO DIFF Differential Total Cells 100 Counted Neutrophils % (Manual) 50 % Band Neutrophils % 2 % Lymphocytes % 39 % Monocytes % 5 % Eosinophils % 3 % Neutrophils # (Manual) 8.7 TH/MM3 Metamyelocytes 1 % Differential Comment FINAL DIFF MANUAL Platelet Estimate NORMAL Platelet Morphology Comment NORMAL Prothrombin Time 11.0 SEC Prothromb Time International 1.0 RATIO Ratio Activated Partial 23.0 SEC Thromboplast Time Bedside Sodium 141 MMOL/L Bedside Potassium 2.6 MMOL/L Bedside Chloride 104 MMOL/L Bedside Blood Urea Nitrogen 8 MG/DL Bedside Creatinine 0.6 MG/DL Bedside Glucose 156 MG/DL Magnesium Level 2.1 MG/DL 2.5 MG/DL Blood Type O POSITIVE Antibody Screen NEGATIVE Blood Gas Puncture Site RT RADIAL Blood Gas Patient Temperature 98.6 Blood Gas HCO3 17 mmol/L Blood Gas Base Excess -7.7 mmol/L Blood Gas Oxygen Saturation 98 % Arterial Blood pH 7.32 Arterial Blood Partial 35 mmHg Pressure CO2 Arterial Blood Partial 251 mmHg Pressure O2 Arterial Blood Oxygen Content 17.8 Vol % Arterial Blood 0.7 % Carboxyhemoglobin Arterial Blood Methemoglobin 1.1 % Blood Gas Hemoglobin 12.5 G/DL Oxygen Delivery Device VENTILATOR Blood Gas Ventilator Setting SEE COMMENTS Blood Gas Inspired Oxygen 50 % Nasal Screen MRSA (PCR) MRSA NOT DETECTED Urine Specific [place] 1.008 Urine Osmolality 59 MOSM/KG Urine Random Sodium 13 MEQ/L Sodium Level 142 MEQ/L Potassium Level 3.7 MEQ/L Chloride Level 113 MEQ/L Carbon Dioxide Level 18.9 MEQ/L Anion Gap 10 MEQ/L Blood Urea Nitrogen 6 MG/DL Creatinine 0.80 MG/DL Estimat Glomerular Filtration 99 ML/MIN Rate Random Glucose 159 MG/DL Serum Osmolality 312 MOSM/KG Calcium Level 9.2 MG/DL Phosphorus Level 2.1 MG/DL Test 10/14/16 06:00 White Blood Count 20.3 TH/MM3 Red Blood Count 4.71 MIL/MM3 Hemoglobin 13.2 GM/DL Hematocrit 38.2 % Mean Corpuscular Volume 81.2 FL Mean Corpuscular Hemoglobin 28.0 PG Mean Corpuscular Hemoglobin 34.5 % Concent Red Cell Distribution Width 14.6 % Platelet Count 324 TH/MM3 Mean Platelet Volume 8.5 FL Sodium Level 148 MEQ/L Potassium Level 3.4 MEQ/L Chloride Level 120 MEQ/L Carbon Dioxide Level 17.6 MEQ/L Anion Gap 10 MEQ/L Blood Urea Nitrogen 5 MG/DL Creatinine 0.72 MG/DL Estimat Glomerular Filtration 112 ML/MIN Rate Random Glucose 227 MG/DL Calcium Level 8.2 MG/DL Phosphorus Level 0.3 MG/DL Magnesium Level 2.1 MG/DL Vital Signs Date Time Temp Pulse Resp B/P Pulse Ox O2 Delivery O2 Flow Rate FiO2 10/14/16 14:00 123 10/14/16 12:00 97.2 124 14 158/86 100 10/14/16 12:00 109 10/14/16 11:19 100 40 10/14/16 10:00 123 10/14/16 08:00 133 10/14/16 08:00 96.3 124 14 102/53 100 10/14/16 07:50 99 40 10/14/16 07:00 40 Mechanical Ventilator 100 10/14/16 06:00 114 10/14/16 04:06 100 40 10/14/16 04:00 122 10/14/16 04:00 95.9 121 14 164/98 100 10/14/16 04:00 40 Mechanical Ventilator 100 10/14/16 02:00 107 10/14/16 00:52 100 40 10/14/16 00:00 102 10/14/16 00:00 94.5 102 14 129/85 100 10/13/16 22:00 58 10/13/16 22:00 100 100 10/13/16 20:13 100 40 10/13/16 20:00 58 14 121/57 100 Automatic Cuff 10/13/16 20:00 50 10/13/16 17:45 98.0 62 14 167/85 100 10/13/16 17:21 100 50 10/13/16 16:50 100 100 10/13/16 16:00 100 Nasal Cannula 2.00 (Dennis Catalan) Medical Decision Making Impression and Plan Impression: Subarachnoid hemorrhage. 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 Patient is likely to have additional thrombosed aneurysm. Moderate MCA vasospasm on initial CT angiogram. The CT scan of the head reveals early loss of reese-white interface in both hemispheres primarily along the temporal occipital region. The CT angiogram preliminary results indicates loss of blood flow past the level of the proximal carotid arteries and basilar artery. Findings suggest severe diffuse vasospasm. Initial ventriculostomy placement 2 sites unsuccessful. Patient unresponsive, prognosis poor. Plan: Primary management per Rug Receiving Clerk. Frequent neuro checks. Maintain permissive hypertension despite uncontrolled aneurysm. Recommend Palliative Care vs Hospice Care consult. (Dennis Catalan) Attending Statement I have personally seen and examined the patient on 10/14/16. Pertinent documentation and study results have been reviewed by the undersigned. I have personally developed the treatment plan and performed medical decision making. Agree with findings, exam, and treatment plan as noted above. My examination this evening reveals pupils 6-7 mm, nonreactive. Absent corneal and oculocephalic responses Absent cough response No response to deep pain all extremities Funduscopic exam reveals diffuse optic pallor. The patient's findings were discussed in detail with multiple family members in the care unit today. She continues to have no sign of cortical or brainstem function on examination, since late last evening. The patient's examination, clinical course, and follow-up CT angiogram on the evening of 10/13/16 indicate severe irreversible brain injury related to severe vasospasm with essentially complete cessation of blood flow to the brain above the skull base area on CT angiogram. I advised the family that it is unusual for this severe spasm to develop within the first 24 hours after the hemorrhage. They indicate that the patient did have a severe headache this past Thursday, but did not seek medical attention. Continuing pressors to try to maintain cerebral blood flow, despite unsecured aneurysm. I previously discussed with interventional radiology and patient not felt to be a candidate for any interventional procedure. She has not been a candidate for transfer to a tertiary care facility due to her severe neurologic deficit and evidence of diffuse cerebral ischemia-infarction. Plan cerebral blood flow study on 10/15/16. This was explained to the patient's family. I have answered all of their questions. (Eder Cristina MD) Dennis Catalan Oct 14, 2016 15:06 Eder Cristina MD Oct 14, 2016 22:14
[2016-10-14 16:45] LABS: BICARBONATE 15.3 MEQ/L (21.0-32.0); MAGNESIUM 2.1 MG/DL (1.5-2.5); POTASSIUM 3.4 MEQ/L (3.5-5.1)
--- NOTE | 2016-10-14 20:01 | HHI.CCPN ---
Subjective Remarks/Hospital Course Hospital Course: This is a 36yF who presents as a Andra Carnes for altered mental status. she was reportedly found in her bathroom unresponsive. she was initially brought in as a trauma alert. CT brain demonstrated Blackwood 4 SAH. she was transferred to the ICU intubated, hypertensive. I evaluated the patient on arrival to the ICU ( delayed note entry). she is unable to provide any additional history. Subjective: 10/14: overnight, both pupils fixed and dilated. not breathing over the vent. repeat CTA head/neck with severe vasopasm with significant global areas of ischemia. nsgy unable to place EVD. very poor prognosis. Also now in DI, sodium rising, uop high. on multiple vasopressors to maintain cerebral perfusion pressure. clinically declining. Objective Vital Signs Date Time Temp Pulse Resp B/P Pulse Ox O2 Delivery O2 Flow Rate FiO2 10/14/16 18:00 114 10/14/16 16:02 100 40 10/14/16 16:00 97.2 14 167/90 10/14/16 07:00 Mechanical Ventilator 10/13/16 16:00 2.00 Intake and Output 10/13/16 10/13/16 10/14/16 08:00 16:00 00:00 Intake Total 224 ml Output Total 1700 ml Balance -1476 ml Result Diagram: 10/14/16 0600 10/14/16 1505 Imaging Last Impressions Pelvis X-Ray 10/13/161610 Signed Impressions: Service Date/Time: Thursday, October 13, 2016 15:54 - CONCLUSION: No acute disease. Maco Mason MD Head CT 10/13/161610 Signed Impressions: Service Date/Time: Thursday, October 13, 2016 16:14 - CONCLUSION: Diffuse subarachnoid blood. Maco Mason MD Chest X-Ray 10/13/161610 Signed Impressions: Service Date/Time: Thursday, October 13, 2016 15:54 - CONCLUSION: No acute disease. Maco Mason MD Chest CT 10/13/161610 Signed Impressions: Service Date/Time: Thursday, October 13, 2016 16:20 - CONCLUSION: No acute disease. Bakari Hutchins MD Cervical Spine CT 10/13/161610 Signed Impressions: Service Date/Time: Stephen, October 13, 2016 16:14 - CONCLUSION: No acute bony injury in the cervical spine. Maco Mason MD Abdomen/Pelvis CT 10/13/16 1611 Signed Impressions: Service Date/Time: Thursday, October 13, 2016 16:20 - CONCLUSION: No acute disease. Bakari Hutchins MD Neck CTA 10/13/16 0000 Signed Impressions: Service Date/Time: Thursday, October 13, 2016 16:35 - CONCLUSION: Normal examination. Maco Mason MD Head CTA 10/13/16 0000 Signed Impressions: Service Date/Time: Thursday, October 13, 2016 16:35 - CONCLUSION: 1. Small tubular aneurysm projecting off the left internal carotid terminus characteristic of a recently ruptured aneurysm which may be partially thrombosed. 2. Moderate to severe vasospasm worse in the left middle cerebral artery distribution. 3. origin of the right posterior cerebral artery. 4. Mild vasospasm vertebrobasilar circulation. Bakari Hutchins MD Objective Remarks Middle-aged female, lying in bed, unresponsive, intubated Pupils fixed and dilated, conjugate Equal chest rise. PRvC. FiO2 40%. GCS 3, RASS -5. Does not withdraw to pain. Does not follow commands. A/P Assessment and Plan Assessment: 36-year-old female post-bleed day 1 status post Jones-Victoria 5, Blackwood 4 aneurysmal subarachnoid hemorrhage. Complicated by early severe cerebral vasospasm, severe malignant cerebral edema, likely transtentorial herniation. Discussed with neurosurgery, unlikely to have good prognosis. updated family at bedside. remains very critically ill. Active Problems: Aneurysmal subarachnoid hemorrhage, Jones-Victoria 5, Blackwood 4 Acute encephalopathy Acute hypoxic and hypercarbic respiratory failure Malignant Cerebral Edema Early Severe cerebral vasospasm Central Diabetes Insipidus Plan: goal cpp > 60 frequent neuro checks ddavp levo, epi, vaso to keep cpp nsgy consulted, maynor following nimodipine daily tcds npo scds maintain euvolemia. Critical Care time: 37 minutes, exclusive of separately billable procedures Alexys Rudd MD Oct 14, 2016 20:01
[2016-10-15] VITALS (17 sets, daily range): BP systolic 91–144; BP diastolic 58–88; PULSE 114–142; RESP 14; TEMP 96.8–98.8; O2SAT 94–100
[2016-10-15] MEDS: niMODipine 30 MG CAP NG SCH ×3 (00:10→08:24)
[2016-10-15] MEDS: NOREPINEPHRINE INJ 4 MG in SODIUM CHLOR 0.9% 250 ML INJ 250 ML IV SCH ×26 (00:11→23:17)
[2016-10-15] MEDS: EPINEPHrine (1:1000) INJ 2 MG in SODIUM CHLOR 0.9% 250 ML INJ 250 ML IV SCH ×6 (00:11→22:06)
[2016-10-15] MEDS: SODIUM CHLOR 0.9% 1000 ML INJ 1,000 ML IV SCH ×2 (01:59→08:24)
[2016-10-15] MEDS: niMODipine 30 MG CAP PO SCH ×4 (03:43→12:00)
[2016-10-15] MEDS: CHLORHEXIDINE GLUCONATE 2 % 1 PACK (2 CLOTHS) TOP SCH (04:00)
[2016-10-15] MEDS ORDERED: VASOPRESSIN INJ 20 UNITS/ML VIAL ONE (06:55)
[2016-10-15] MEDS ORDERED: VASOPRESSIN 40 U/100 ML D5W Titrate, Post Cardiac Surgery IV SCH ×2 (07:15)
[2016-10-15] MEDS: levETIRAcetam INJ 500 MG in SODIUM CHLORIDE 0.9% INJ 100 ML IV SCH ×2 (08:23→21:58)
[2016-10-15] MEDS: DESMOPRESSIN ACETATE 4 MCG/ML VIAL SQ SCH (08:24)
[2016-10-15] MEDS: DOCUSATE SODIUM 50 MG/SENNA 8.6 MG TAB PO SCH ×2 (08:24→22:15)
[2016-10-15] MEDS: PANTOPRAZOLE SODIUM 40 MG VIAL IV SCH (08:24)
[2016-10-15] MEDS: ARTIFICIAL TEARS OPTH SOLN 15 ML BTL EACH EYE SCH ×3 (08:24→18:00)
[2016-10-15] MEDS: SODIUM CHLORIDE 0.9% FLUSH 10 ML FLUSH IV FLUSH SCH ×2 (09:00→21:00)
--- NOTE | 2016-10-15 10:24 | HHI.CCPN ---
Subjective Remarks/Hospital Course Hospital Course: This is a 36yF who presents as a Andra Carnes for altered mental status. she was reportedly found in her bathroom unresponsive. she was initially brought in as a trauma alert. CT brain demonstrated Blackwood 4 SAH. she was transferred to the ICU intubated, hypertensive. I evaluated the patient on arrival to the ICU ( delayed note entry). she is unable to provide any additional history. Subjective: 10/14: overnight, both pupils fixed and dilated. not breathing over the vent. repeat CTA head/neck with severe vasospasm with significant global areas of ischemia. nsgy unable to place EVD. very poor prognosis. Also now in DI, sodium rising, uop high. on multiple vasopressors to maintain cerebral perfusion pressure. clinically declining. 10/15: Unresponsive, no reflexes - absent cough, gag. Pupils dilated fixed at 6 mm. Plan apnea test and/or flow study today. Flow study demonstrates brain . Will correct electrolytes if possible to complete brain criteria and to allow consideration for donation. I suspect her worsening instability will preclude donation. Will increase DDAVP and try to stop DI. Will make DNR status, technically . Objective Vital Signs Date Time Temp Pulse Resp B/P Pulse Ox O2 Delivery O2 Flow Rate FiO2 10/15/16 08:00 98.8 129 14 100/60 96 10/15/16 08:00 40 10/14/16 19:00 Mechanical Ventilator 10/13/16 16:00 2.00 Intake and Output 10/14/16 10/14/16 10/14/16 07:59 15:59 23:59 Intake Total 654 ml 5634 ml 4324 ml Output Total 2850 ml 4450 ml 6550 ml Balance -2196 ml 1184 ml -2226 ml Result Diagram: 10/14/16 0600 10/14/16 1505 Imaging Last Impressions Pelvis X-Ray 10/13/161610 Signed Impressions: Service Date/Time: Thursday, October 13, 2016 15:54 - CONCLUSION: No acute disease. Maco Mason MD Head CT 10/13/161610 Signed Impressions: Service Date/Time: Thursday, October 13, 2016 16:14 - CONCLUSION: Diffuse subarachnoid blood. Maco Mason MD Chest X-Ray 10/13/161610 Signed Impressions: Service Date/Time: Thursday, October 13, 2016 15:54 - CONCLUSION: No acute disease. Maco Mason MD Chest CT 10/13/16 1611 Signed Impressions: Service Date/Time: Thursday, October 13, 2016 16:20 - CONCLUSION: No acute disease. Bakari Hutchins MD Cervical Spine CT 10/13/16 1611 Signed Impressions: Service Date/Time: Thursday, October 13, 2016 16:14 - CONCLUSION: No acute bony injury in the cervical spine. Maco Mason MD Abdomen/Pelvis CT 10/13/16 1611 Signed Impressions: Service Date/Time: Thursday, October 13, 2016 16:20 - CONCLUSION: No acute disease. Bakari Hutchins MD Neck CTA 10/13/16 0000 Signed Impressions: Service Date/Time: Thursday, October 13, 2016 16:35 - CONCLUSION: Normal examination. Maco Mason MD Head CTA 10/13/16 0000 Signed Impressions: Service Date/Time: Thursday, October 13, 2016 16:35 - CONCLUSION: 1. Small tubular aneurysm projecting off the left internal carotid terminus characteristic of a recently ruptured aneurysm which may be partially thrombosed. 2. Moderate to severe vasospasm worse in the left middle cerebral artery distribution. 3. origin of the right posterior cerebral artery. 4. Mild vasospasm vertebrobasilar circulation. Bakari Hutchins MD Objective Remarks Middle-aged female, lying in bed, unresponsive, intubated Neuro:Pupils fixed and dilated. No cough, gag, no spont respirations. GCS 3T Does not withdraw to pain. Does not follow commands. Lungs: Equal chest rise. PRvC. FiO2 40%. Heart: NL S2S2, no m,r. Extremities: Poorly perfused. A/P Assessment and Plan Assessment: 36-year-old female post-bleed day 2 status post Jones-Victoria 5, Blackwood 4 aneurysmal subarachnoid hemorrhage. Complicated by early severe cerebral vasospasm, severe malignant cerebral edema, likely transtentorial herniation. Discussed with neurosurgery, unlikely to have good prognosis. updated family at bedside. remains very critically ill. Active Problems: Aneurysmal subarachnoid hemorrhage, Jones-Victoria 5, Blackwood 4 Acute encephalopathy Acute hypoxic and hypercarbic respiratory failure Malignant Cerebral Edema Early Severe cerebral vasospasm Central Diabetes Insipidus Plan: goal cpp > 60 frequent neuro checks ddavp levo, epi, vaso to keep cpp nsgy consulted, maynor following nimodipine daily tcds npo scds maintain euvolemia. flow study apnea test Overall impression: Remains critically ill following an acute subarachnoid hemorrhage and devastating neurological injury. Critical Care time: 37 minutes, exclusive of separately billable procedures Dat Bonilla MD Oct 15, 2016 10:24
[2016-10-15] MEDS ORDERED: LACTATED RINGER'S 1000 ML INJ 1,000 ML IV SCH (11:00)
[2016-10-15 11:14] LABS: BICARBONATE 12.9 MEQ/L (21.0-32.0); INDIRECT BILIRUBIN 0.4 MG/DL (0.0-0.8); POTASSIUM 3.3 MEQ/L (3.5-5.1); TOTAL BILIRUBIN ADULT 0.5 MG/DL (0.2-1.0)
[2016-10-15] MEDS: POTASSIUM CHLORIDE 25 MEQ EFFERVESCENT TAB PO PRN (11:24)
[2016-10-15] MEDS ORDERED: DEXTROSE 5% IN WATE 1000ML INJ 1,000 ML IV ONE (12:00)
[2016-10-15] MEDS ORDERED: LEVOTHYROXINE SODIUM 100 MCG VIAL IV PUSH ONE (13:00)
--- NOTE | 2016-10-15 13:06 | HHI.NSPN ---
(Dennis Catalan) History Chief Complaint: Unable to obtain due to patient's clinical condition. (Dennis Catalan) Interval History 10/13: 36-year-old female found down on the bathroom floor by her family at her home, unresponsive. GCS reportedly 11-12 in route to the hospital per EMS as well as in the emergency room prior to intubation in the emergency room. CT scan of the head and CT angiogram of the head and neck accomplished while in the emergency room. Findings discussed with emergency room physician while he undersigned was in the operating room. Following CT angiogram, the radiologist came to the operating room to discuss the findings, which revealed positive subarachnoid hemorrhage and primarily the interpeduncular and chiasmatic cistern, bilateral sylvian fissure and interhemispheric fissure. No significant edema or midline shift. No significant hydrocephalus. CT angiogram with probable thin aneurysmal neck at the terminus of the left internal carotid artery with moderate left MCA spasm. Upon completion of surgical procedure with another patient, undersigned notified of 1 mm difference in pupil size. Upon arrival in the intensive care unit shortly thereafter, patient noted to have rapid further increase in pupil size to 6-7 mm dilated nonreactive. No seizure activity noted. 10/14: The patient remains intubated and on mechanical ventilation. Nursing reports that she has been unresponsive. She is not on any drips for sedation. Epinephrine and norepinephrine drips are infusing for blood pressure control. 10/15: The patient is hypotensive with SBP into the 70s when seen this afternoon. She is currently on epinephrine, norepinephrine and vasopressin drips. The [facility] has ordered a T4 drip to be started. A brain blood flow scan has been ordered and is still pending completion. She is still intubated and mechanically ventilated. (Dennis Catalan) System Review Comments Unable to obtain due to patient's clinical condition. (Dennis Catalan) Exam Results Vital Signs Date Time Temp Pulse Resp B/P Pulse Ox O2 Delivery O2 Flow Rate FiO2 10/15/16 12:00 130 10/15/16 12:00 98.2 14 91/58 94 10/15/16 11:17 40 10/14/16 19:00 Mechanical Ventilator 10/13/16 16:00 2.00 Intake and Output 10/14/16 10/14/16 10/15/16 08:00 16:00 00:00 Intake Total 654 ml 5634 ml 4324 ml Output Total 2850 ml 4450 ml 6550 ml Balance -2196 ml 1184 ml -2226 ml (Dennis Catalan) Physical Examination GENERAL: Patient is intubated and nonresponsive w/o any sedation. SKIN: Warm, dry & intact, no evident discolouration, rashes, ulcerations or other lesions. HEENT: Right frontal scalp ventriculostomy insertion site w/o any active drainage, erythema or streaking. Pupils fixed & dilated. Orally intubated. OGT. NECK: [place] J cervical collar in place, no JVD, trachea midline. CARDIOVASCULAR: S1S2 w/regular but rapid rate w/o M/G/R, radial pulses 1+ bilaterally but unable to palpate pedal pulses, cap refill < 2 sec, no pedal edema. Monitor is sinus tachycardia w/o any ectopy noted. Hypotensive w/SBP in 70s, with epinephrine, norepinephrine & vasopressin drips infusing for blood pressure control. RESPIRATORY: CTAB w/o W/R/R, equal excursion, nonlaboured, intubated & mechanically ventilated, not breathing above set rate. GASTROINTESTINAL: Abdomen soft, bowel sounds not appreciated, OGT clamped. MUSCULOSKELETAL: No evident deformity or clubbing note. NEUROLOGICAL: Intubated w/o sedation, GCS 3T (E1 V1T M1) No response to voice. No response to localised or central noxious stimuli to all extremities. No eye opening. Pupils 6 mm nonreactive. No corneal reflex. No cough reflex. (Dennis Catalan) Lab, Micro, Other Results Allergies Coded Allergies Type Severity Reaction Last Updated Verified No Known Allergies 10/14/16 No Recent Impressions Pelvis X-Ray 10/13/161610 Signed Impressions: Service Date/Time: Thursday, October 13, 2016 15:54 - CONCLUSION: No acute disease. Maco Mason MD Head CT 10/13/16 1611 Signed Impressions: Service Date/Time: Thursday, October 13, 2016 16:14 - CONCLUSION: Diffuse subarachnoid blood. Maco Mason MD Chest X-Ray 10/13/161610 Signed Impressions: Service Date/Time: Thursday, October 13, 2016 15:54 - CONCLUSION: No acute disease. Maco Mason MD Chest CT 10/13/161610 Signed Impressions: Service Date/Time: Thursday, October 13, 2016 16:20 - CONCLUSION: No acute disease. Bakari Hutchins MD Cervical Spine CT 10/13/161610 Signed Impressions: Service Date/Time: Thursday, October 13, 2016 16:14 - CONCLUSION: No acute bony injury in the cervical spine. Maco Mason MD Abdomen/Pelvis CT 10/13/161610 Signed Impressions: Service Date/Time: Thursday, October 13, 2016 16:20 - CONCLUSION: No acute disease. Bakari Hutchins MD Neck CTA 10/13/16 0000 Signed Impressions: Service Date/Time: Thursday, October 13, 2016 16:35 - CONCLUSION: Normal examination. Maco Mason MD Head CTA 10/13/16 0000 Signed Impressions: Service Date/Time: Thursday, October 13, 2016 22:19 - CONCLUSION: 1. Subarachnoid hemorrhage. Limited study. Doug Mariano MD ADDENDUM: There is contrast identified within the distal vertebral arteries and basilar artery as well as the Yasemin and cavernous internal carotid arteries. Contrast flow within the vasculature distal to this point is not clearly seen. Doug Mariano MD Head CTA 10/13/16 0000 Signed Impressions: Service Date/Time: Thursday, October 13, 2016 16:35 - CONCLUSION: 1. Small tubular aneurysm projecting off the left internal carotid terminus characteristic of a recently ruptured aneurysm which may be partially thrombosed. 2. Moderate to severe vasospasm worse in the left middle cerebral artery distribution. 3. origin of the right posterior cerebral artery. 4. Mild vasospasm vertebrobasilar circulation. Bakari Hutchins MD Head CT 10/13/16 0000 Signed Impressions: Service Date/Time: Thursday, October 13, 2016 22:16 - CONCLUSION: 1. There is increase in subarachnoid hemorrhage since exam from earlier today with an increase in brain swelling and the decrease in ventricular size. Questionable evolving infarct left MCA distribution. Small amount of intraventricular hemorrhage. Hamlet Fowler MD Chest X-Ray 10/13/16 0000 Signed Impressions: Service Date/Time: Thursday, October 13, 2016 19:06 - CONCLUSION: 1. Support apparatus in satisfactory position. Left central line without pneumothorax. Hamlet Fowler MD / 06:00 18:00 06:00 18:00 06:00 18:00 Intake Total 878 ml 5634 ml 9384 ml Output Total 4550 ml 7100 ml 7150 ml Balance -3672 ml -1466 ml 2234 ml Intake IV Total 502 ml 5434 ml 9164 ml Tube Feeding 316 ml Tube Irrigant 200 ml Other 60 ml 220 ml Output Urine Total 4550 ml 7100 ml 6750 ml Gastric Drainage Total 400 ml # Bowel Movements 0 0 0 Laboratory Tests Test 10/13/16 10/13/16 10/13/16 10/14/16 16:02 17:30 17:35 00:10 White Blood Count 16.4 TH/MM3 Red Blood Count 4.49 MIL/MM3 Hemoglobin 13.1 GM/DL Bedside Hemoglobin 13.6 G/DL Hematocrit 36.1 % Bedside Hematocrit 40.0 % Mean Corpuscular Volume 80.5 FL Mean Corpuscular Hemoglobin 29.2 PG Mean Corpuscular Hemoglobin 36.2 % Concent Red Cell Distribution Width 14.0 % Platelet Count 320 TH/MM3 Mean Platelet Volume 8.7 FL Neutrophils (%) (Auto) 56.6 % Lymphocytes (%) (Auto) 35.2 % Monocytes (%) (Auto) 6.7 % Eosinophils (%) (Auto) 1.2 % Basophils (%) (Auto) 0.3 % Neutrophils # (Auto) 9.3 TH/MM3 Lymphocytes # (Auto) 5.8 TH/MM3 Monocytes # (Auto) 1.1 TH/MM3 Eosinophils # (Auto) 0.2 TH/MM3 Basophils # (Auto) 0.0 TH/MM3 CBC Comment AUTO DIFF Differential Total Cells 100 Counted Neutrophils % (Manual) 50 % Band Neutrophils % 2 % Lymphocytes % 39 % Monocytes % 5 % Eosinophils % 3 % Neutrophils # (Manual) 8.7 TH/MM3 Metamyelocytes 1 % Differential Comment FINAL DIFF MANUAL Platelet Estimate NORMAL Platelet Morphology Comment NORMAL Prothrombin Time 11.0 SEC Prothromb Time International 1.0 RATIO Ratio Activated Partial 23.0 SEC Thromboplast Time Bedside Sodium 141 MMOL/L Bedside Potassium 2.6 MMOL/L Bedside Chloride 104 MMOL/L Bedside Blood Urea Nitrogen 8 MG/DL Bedside Creatinine 0.6 MG/DL Bedside Glucose 156 MG/DL Magnesium Level 2.1 MG/DL 2.5 MG/DL Blood Type O POSITIVE Antibody Screen NEGATIVE Blood Gas Puncture Site RT RADIAL Blood Gas Patient Temperature 98.6 Blood Gas HCO3 17 mmol/L Blood Gas Base Excess -7.7 mmol/L Blood Gas Oxygen Saturation 98 % Arterial Blood pH 7.32 Arterial Blood Partial 35 mmHg Pressure CO2 Arterial Blood Partial 251 mmHg Pressure O2 Arterial Blood Oxygen Content 17.8 Vol % Arterial Blood 0.7 % Carboxyhemoglobin Arterial Blood Methemoglobin 1.1 % Blood Gas Hemoglobin 12.5 G/DL Oxygen Delivery Device VENTILATOR Blood Gas Ventilator Setting SEE COMMENTS Blood Gas Inspired Oxygen 50 % Nasal Screen MRSA (PCR) MRSA NOT DETECTED Urine Specific [place] 1.008 Urine Osmolality 59 MOSM/KG Urine Random Sodium 13 MEQ/L Sodium Level 142 MEQ/L Potassium Level 3.7 MEQ/L Chloride Level 113 MEQ/L Carbon Dioxide Level 18.9 MEQ/L Anion Gap 10 MEQ/L Blood Urea Nitrogen 6 MG/DL Creatinine 0.80 MG/DL Estimat Glomerular Filtration 99 ML/MIN Rate Random Glucose 159 MG/DL Serum Osmolality 312 MOSM/KG Calcium Level 9.2 MG/DL Phosphorus Level 2.1 MG/DL Test 10/14/16 10/14/16 10/15/16 06:00 15:05 10:26 White Blood Count 20.3 TH/MM3 Red Blood Count 4.71 MIL/MM3 Hemoglobin 13.2 GM/DL Hematocrit 38.2 % Mean Corpuscular Volume 81.2 FL Mean Corpuscular Hemoglobin 28.0 PG Mean Corpuscular Hemoglobin 34.5 % Concent Red Cell Distribution Width 14.6 % Platelet Count 324 TH/MM3 Mean Platelet Volume 8.5 FL Sodium Level 148 MEQ/L 163 MEQ/L 176 MEQ/L Potassium Level 3.4 MEQ/L 3.4 MEQ/L 3.3 MEQ/L Chloride Level 120 MEQ/L 139 MEQ/L 154 MEQ/L Carbon Dioxide Level 17.6 MEQ/L 15.3 MEQ/L 12.9 MEQ/L Anion Gap 10 MEQ/L 9 MEQ/L 9 MEQ/L Blood Urea Nitrogen 5 MG/DL 2 MG/DL 4 MG/DL Creatinine 0.72 MG/DL 0.86 MG/DL 1.38 MG/DL Estimat Glomerular Filtration 112 ML/MIN 91 ML/MIN 53 ML/MIN Rate Random Glucose 227 MG/DL 192 MG/DL 111 MG/DL Calcium Level 8.2 MG/DL 7.7 MG/DL 7.9 MG/DL Phosphorus Level 0.3 MG/DL 0.9 MG/DL Magnesium Level 2.1 MG/DL 2.1 MG/DL Urine Specific [place] 1.004 Urine Osmolality 204 MOSM/KG Total Bilirubin 0.5 MG/DL Direct Bilirubin 0.1 MG/DL Indirect Bilirubin 0.4 MG/DL Aspartate Amino Transf 7 U/L (AST/SGOT) Alanine Aminotransferase 14 U/L (ALT/SGPT) Alkaline Phosphatase 86 U/L Total Protein 6.3 GM/DL Albumin 2.5 GM/DL Vital Signs Date Time Temp Pulse Resp B/P Pulse Ox O2 Delivery O2 Flow Rate FiO2 10/15/16 12:00 130 10/15/16 12:00 98.2 130 14 91/58 94 10/15/16 11:17 94 40 10/15/16 08:00 98.8 129 14 100/60 96 10/15/16 08:00 40 10/15/16 08:00 129 10/15/16 07:45 95 40 10/15/16 06:00 139 10/15/16 04:00 98.8 124 14 129/80 96 10/15/16 04:00 128 10/15/16 03:58 96 40 10/15/16 02:00 123 10/15/16 00:33 99 40 10/15/16 00:00 114 10/15/16 00:00 97.5 118 14 144/88 98 10/14/16 22:00 114 10/14/16 20:49 100 40 10/14/16 20:00 96.8 109 14 165/99 100 10/14/16 20:00 114 10/14/16 19:00 100 Mechanical Ventilator 40 10/14/16 18:00 114 10/14/16 16:02 100 40 10/14/16 16:00 97.2 119 14 167/90 100 10/14/16 16:00 115 10/14/16 14:00 123 10/14/16 12:00 97.2 124 14 158/86 100 10/14/16 12:00 109 10/14/16 11:19 100 40 10/14/16 10:00 123 10/14/16 08:00 133 10/14/16 08:00 96.3 124 14 102/53 100 10/14/16 07:50 99 40 10/14/16 07:00 40 Mechanical Ventilator 100 10/14/16 06:00 114 10/14/16 04:06 100 40 10/14/16 04:00 122 10/14/16 04:00 95.9 121 14 164/98 100 10/14/16 04:00 40 Mechanical Ventilator 100 10/14/16 02:00 107 10/14/16 00:52 100 40 10/14/16 00:00 102 10/14/16 00:00 94.5 102 14 129/85 100 10/13/16 22:00 58 10/13/16 22:00 100 100 10/13/16 20:13 100 40 10/13/16 20:00 58 14 121/57 100 Automatic Cuff 10/13/16 20:00 50 10/13/16 17:45 98.0 62 14 167/85 100 10/13/16 17:21 100 50 10/13/16 16:50 100 100 10/13/16 16:00 100 Nasal Cannula 2.00 (Dennis Catalan) Medical Decision Making Impression and Plan Impression: Subarachnoid hemorrhage. 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 Patient is likely to have additional thrombosed aneurysm. Moderate MCA vasospasm on initial CT angiogram. The CT scan of the head reveals early loss of reese-white interface in both hemispheres primarily along the temporal occipital region. The CT angiogram preliminary results indicates loss of blood flow past the level of the proximal carotid arteries and basilar artery. Findings suggest severe diffuse vasospasm. Initial ventriculostomy placement 2 sites unsuccessful. Sodium 176 Patient still is unresponsive to any stimulus, prognosis poor. Plan: Primary management per [facility]. Frequent neuro checks. Maintain permissive hypertension despite uncontrolled aneurysm. Recommend Palliative Care vs Hospice Care consult. Brain image w/flow. (Dennis Catalan) Attending Statement I have personally seen and examined the patient on the date of this note. Pertinent documentation and study results have been reviewed by the undersigned. I have personally developed the treatment plan and performed medical decision making. Agree with findings, exam, and treatment plan as noted above. On my examination today, the patient is off all intravenous sedation. She is on multiple pressors with systolic blood pressure in the low 90s. Pupils remain 7 mm nonreactive. Absent corneal and oculocephalic responses. No eye opening to voice or pain or spontaneous Absent cough and gag response No spontaneous respirations noted No movement of the extremities to deep pain Results of 10/15/16 cerebral blood flow study reviewed and indicate absent blood flow. Discussed at length with the patient's and other family in the room this evening. Advised that she continues to have no sign of brain function on examination, and the results of CTA on 10/13/16 as well as cerebral blood flow study on 10/15/16 reveal lack of cerebral blood flow incompatible with any meaningful survival. Attempting to normalize her electrolyte and hemodynamic status. (Eder Cristina MD) Dennis Catalan Oct 15, 2016 13:06 Eder Cristina MD Oct 15, 2016 19:50
[2016-10-15] MEDS: LACTATED RINGER'S 1000 ML INJ 2,000 ML IV SCH ×4 (13:15→21:46)
[2016-10-15] MEDS: LEVOTHYROXINE 400 MCG/NS 500 ML IV SCH ×2 (13:24)
[2016-10-15] MEDS ORDERED: TERBUTALINE INJ 1 MG/ML AMP SQ PRN (13:30)
[2016-10-15] MEDS ORDERED: DESMOPRESSIN ACETATE 4 MCG/ML VIAL IV PUSH SCH (15:00)
[2016-10-15] MEDS ORDERED: PHENYLEPHRINE HCL 10 MG/ML VIAL ONE ×2 (15:15→18:10)
--- NOTE | 2016-10-15 15:27 | RADRPT ---
EXAM DATE/TIME: 10/15/2016 14:16 [facility] COMPARISON: No previous studies available for comparison. INDICATIONS : Acute subarachnoid hemorrhage. DOSE: ?25 mCi Tc99m DTPA IV The diagnosis of brain is clinical and the results of this test should be taken in the content of clinical and electrocephalographic data. MEDICAL HISTORY : Unobtainable. SURGICAL HISTORY : section. ENCOUNTER: Initial ACUITY: 1 day PAIN SCALE: Non-responsive LOCATION: Head. TECHNIQUE: Anterior dynamic imaging as well as delayed static imaging. FINDINGS: Absence of cerebral blood flow and parenchymal uptake are noted. CONCLUSION: Absent cerebral perfusion which confirms brain if clinical criteria are met. Bakari Hutchins MD on October 15, 2016 at 15:18 Board Certified Radiologist. This report was verified electronically.
[2016-10-15] MEDS: PHENYLEPHRINE INJ 160 MG in DEXTROSE 5% IN WATE 500 ML INJ 484 ML IV SCH ×10 (15:28→22:05)
[2016-10-15] MEDS: VASOPRESSIN 40 U/100 ML D5W Titrate, Post Cardiac Surgery IV SCH ×4 (15:58→19:34)
[2016-10-15 17:43] LABS: BICARBONATE 16.7 MEQ/L (21.0-32.0)
[2016-10-15 17:46] LABS: POTASSIUM 2.7 MEQ/L (3.5-5.1)
[2016-10-15] MEDS: ICU - POTASSIUM CHLORIDE/AQUEOUS SOLN 40 MEQ/100 ML IVPB IV PRN ×2 (17:57→20:05)
[2016-10-15] MEDS: DESMOPRESSIN ACETATE 4 MCG/ML VIAL IV PUSH SCH ×2 (18:00→22:16)
[2016-10-15] MEDS ORDERED: POTASSIUM CHLORIDE INJ 30 MEQ in DEXTROSE 5% IN WATE 1000ML INJ 1,000 ML IV SCH ×2 (20:00)
[2016-10-15] MEDS: DEXTROSE 5% IN WATE 1000ML INJ 1,000 ML IV SCH (21:45)
[2016-10-15] MEDS ORDERED: INFO FOR PHARMACY/READ COMMENT SCH (21:45)
[2016-10-15] MEDS ORDERED: LACTATED RINGER'S 1000 ML INJ 1,000 ML IV ONE ×2 (21:45)
[2016-10-16] VITALS (11 sets, daily range): BP systolic 102–122; BP diastolic 32–52; PULSE 128–153; RESP 14–18; TEMP 95–99.1; O2SAT 47–95
--- NOTE | 2016-10-16 00:06 | PD.PROCEDR ---
Procedure Note Procedure Procedure: Arterial Line Placement 16 [place] femoral art line Diagnosis: subArachnoid hemorrhage Indications: Need for beat to beat hemodynamic monitoring Consent: Consent is emergent Description of the Procedure: The right groin was prepped and draped sterilely. 1% lidocaine was used for local anesthesia. The pulse was located and a needle was advanced into the artery. A 16 gauge, 20 cm catheter was advanced into the artery using a modified Seldinger technique. The catheter was sutured to the skin and a sterile dressing was applied. The catheter was connected to a pressure transducer and an arterial waveform was noted. There were no immediate complications noted. There was minimal EBL. I personally performed the procedure. Alexys Rudd MD Oct 16, 2016 00:06
[2016-10-16] MEDS ORDERED: METHYLENE BLUE 100 MG/10 ML VIAL IV ONE (00:15)
[2016-10-16] MEDS: DEXTROSE 5% IV SCH ×22 (00:22→08:36)
[2016-10-16] MEDS: WATER IV SCH ×22 (00:22→08:36)
[2016-10-16] MEDS: NOREPINEPHRINE IV SCH ×22 (00:22→08:36)
[2016-10-16] MEDS: PHENYLEPHRINE INJ 160 MG in DEXTROSE 5% IN WATE 500 ML INJ 484 ML IV SCH ×4 (00:22→12:15)
[2016-10-16 00:29] LABS: BICARBONATE 16.3 MEQ/L (21.0-32.0)
[2016-10-16] MEDS ORDERED: SODIUM BICARBONATE 8.4% INJ 50 MEQ/50 ML SYR IV PUSH ONE ×2 (00:30→10:15)
[2016-10-16 00:33] LABS: POTASSIUM 2.6 MEQ/L (3.5-5.1)
[2016-10-16] MEDS ORDERED: METHYLENE BLUE IV ONE (00:45)
[2016-10-16] MEDS ORDERED: SODIUM CHLORIDE 0.9% IV ONE (00:45)
[2016-10-16] MEDS: ICU - POTASSIUM CHLORIDE/AQUEOUS SOLN 40 MEQ/100 ML IVPB IV PRN ×6 (01:01→12:41)
[2016-10-16 01:05] LABS: CALCIUM-PROTEIN CORRECTED 8.2 MG/DL (8.5-10.1)
[2016-10-16] MEDS: VASOPRESSIN 40 U/100 ML D5W Titrate, Post Cardiac Surgery IV SCH ×8 (01:11→14:47)
[2016-10-16] MEDS: LEVOTHYROXINE 400 MCG/NS 500 ML IV SCH ×2 (01:11)
[2016-10-16] MEDS: DEXTROSE 5% IN WATE 1000ML INJ 1,000 ML IV SCH (01:24)
[2016-10-16 01:45] LABS: BLOOD GAS BASE EXCESS -12.4 mmol/L (-2-2); BLOOD GAS CARBOXYHEMOGLOBIN 0.7 % (0-4); BLOOD GAS HCO3 15 mmol/L (22-26); BLOOD GAS METHEMOGLOBIN 0.7 % (0-2); BLOOD GAS O2 HGB SATURATION 84 % (90-100); BLOOD GAS OXYGEN CONTENT 14.9 Vol % (12.0-20.0); BLOOD GAS PCO2 41 mmHg (38-42); BLOOD GAS PO2 44 mmHG (61-120); BLOOD GAS TOTAL HGB 12.6 G/DL (12.0-16.0); CRITICAL VALUE YES; OXYGEN DEVICE VENTILATOR; TEMP CORR TO 98.6
[2016-10-16 01:46] LABS: DRAW SITE ALINE; FIO2 80 %; STAT YES
[2016-10-16 02:20] LABS: BLOOD GAS CARBOXYHEMOGLOBIN 0.9 % (0-4); BLOOD GAS HCO3 22 mmol/L (22-26); BLOOD GAS METHEMOGLOBIN 0.8 % (0-2); BLOOD GAS O2 HGB SATURATION 86 % (90-100); BLOOD GAS OXYGEN CONTENT 13.6 Vol % (12.0-20.0); BLOOD GAS PCO2 46 mmHg (38-42); BLOOD GAS PO2 44 mmHG (61-120); BLOOD GAS TOTAL HGB 11.3 G/DL (12.0-16.0); CRITICAL VALUE YES; OXYGEN DEVICE VENTILATOR; TEMP CORR TO 98.6
[2016-10-16 02:21] LABS: DRAW SITE ALINE; FIO2 80 %; STAT YES
[2016-10-16] MEDS: DESMOPRESSIN ACETATE 4 MCG/ML VIAL IV PUSH SCH ×2 (02:31→05:56)
[2016-10-16] MEDS: EPINEPHrine (1:1000) INJ 2 MG in SODIUM CHLOR 0.9% 250 ML INJ 250 ML IV SCH ×4 (02:40→14:06)
[2016-10-16] MEDS: CHLORHEXIDINE GLUCONATE 2 % 1 PACK (2 CLOTHS) TOP SCH (04:00)
[2016-10-16 05:28] LABS: AUTOMATED NEUTROPHIL # 3.2 TH/MM3 (1.8-7.7); BASOPHIL % 0.3 % (0.0-2.0); EOSINOPHIL # 0.1 TH/MM3 (0-0.4); EOSINOPHIL % 2.8 % (0.0-4.0); HEMATOCRIT 34.4 % (35.0-46.0); LYMPH % 28.3 % (9.0-44.0); LYMPHOCYTE # 1.5 TH/MM3 (1.0-4.8); MEAN CELL VOLUME 82.1 FL (80.0-100.0); MEAN CORPUSCULAR HEMOGLOBIN 27.2 PG (27.0-34.0); MEAN CORPUSCULAR HGB CONC 33.2 % (32.0-36.0); MONO % 7.6 % (0.0-8.0); PLATELET COUNT 126 TH/MM3 (150-450); RED CELL DISTRIBUTION WIDTH 15.4 % (11.6-17.2); WHITE BLOOD COUNT 5.2 TH/MM3 (4.0-11.0)
[2016-10-16 05:29] LABS: HEMO FLAGS AUTO DIFF
[2016-10-16 05:53] LABS: BICARBONATE 21.9 MEQ/L (21.0-32.0); POTASSIUM 3.5 MEQ/L (3.5-5.1)
[2016-10-16 06:13] LABS: BANDS 18 % (0-6); DOHLE BODIES PRESENT (NONE SEEN); EOSINOPHILS 3 % (0-4); METAMYELOCYTES 12 % (0-1); NEUTROPHIL # MANUAL DIFF 3.2 TH/MM3 (1.8-7.7); POLYS (SEG NEUTROPHILS) 31 % (16-70); WBC DIFF SAMPLE 100
[2016-10-16 06:18] LABS: CALCIUM-PROTEIN CORRECTED 7.8 MG/DL (8.5-10.1)
[2016-10-16 06:19] LABS: PLATELET ESTIMATE SMEAR LOW (NORMAL); PLATELET MORPHOLOGY NORMAL (NORMAL)
[2016-10-16 06:20] LABS: SCAN/DIFF FINAL DIFF MANUAL
[2016-10-16] MEDS: ARTIFICIAL TEARS OPTH SOLN 15 ML BTL EACH EYE SCH ×2 (08:36→13:00)
[2016-10-16] MEDS: SODIUM CHLORIDE 0.9% FLUSH 10 ML FLUSH IV FLUSH SCH (09:00)
[2016-10-16] MEDS: NOREPINEPHRINE 4 MG/D5W 250 ML IV SCH ×7 (09:27→14:33)
--- NOTE | 2016-10-16 09:31 | HHI.NSPN ---
(Dennis Catalan) History Chief Complaint: Unable to obtain due to patient's clinical condition. (Dennis Catalan) Interval History 10/13: 36-year-old female found down on the bathroom floor by her family at her home, unresponsive. GCS reportedly 11-12 in route to the hospital per EMS as well as in the emergency room prior to intubation in the emergency room. CT scan of the head and CT angiogram of the head and neck accomplished while in the emergency room. Findings discussed with emergency room physician while he undersigned was in the operating room. Following CT angiogram, the radiologist came to the operating room to discuss the findings, which revealed positive subarachnoid hemorrhage and primarily the interpeduncular and chiasmatic cistern, bilateral sylvian fissure and interhemispheric fissure. No significant edema or midline shift. No significant hydrocephalus. CT angiogram with probable thin aneurysmal neck at the terminus of the left internal carotid artery with moderate left MCA spasm. Upon completion of surgical procedure with another patient, undersigned notified of 1 mm difference in pupil size. Upon arrival in the intensive care unit shortly thereafter, patient noted to have rapid further increase in pupil size to 6-7 mm dilated nonreactive. No seizure activity noted. 10/14: The patient remains intubated and on mechanical ventilation. Nursing reports that she has been unresponsive. She is not on any drips for sedation. Epinephrine and norepinephrine drips are infusing for blood pressure control. 10/15: The patient is hypotensive with SBP into the 70s when seen this afternoon. She is currently on epinephrine, norepinephrine and vasopressin drips. The Sql Server Consultant has ordered a T4 drip to be started. A brain blood flow scan has been ordered and is still pending completion. She is still intubated and mechanically ventilated. 10/16: The patient is not breathing above the ventilator rate. Her SBP is in the 90s to low 100s with 4 vasopressors and a T4 drip infusing. The Sql Server Consultant had no response upon examination this morning and with a negative brain blood flow scan signed his part of the brain certification. (Dennis Catalan) System Review Comments Unable to obtain due to patient's clinical condition. (Dennis Catalan) Exam Results Vital Signs Date Time Temp Pulse Resp B/P Pulse Ox O2 Delivery O2 Flow Rate FiO2 10/16/16 08:00 100 10/16/16 08:00 140 10/16/16 08:00 98.2 14 102/36 80 10/15/16 19:00 Mechanical Ventilator 10/13/16 16:00 2.00 Intake and Output 10/15/16 10/15/16 10/16/16 08:00 16:00 00:00 Intake Total 5060 ml 5565 ml 77827 ml Output Total 3250 ml 3450 ml 78856 ml Balance 1810 ml 2115 ml 1653 ml (Dennis Catalan) Physical Examination GENERAL: Patient is intubated and nonresponsive w/o any sedation. SKIN: Cool, dry & intact, soles of feet appear dusky, no rashes, ulcerations or other lesions. HEENT: Right frontal scalp ventriculostomy insertion site w/o any active drainage, erythema or streaking. Pupils fixed & dilated. Orally intubated. OGT. NECK: Neck supple, no JVD, trachea midline. CARDIOVASCULAR: S1S2 w/regular but rapid rate w/o M/G/R, radial pulses 1+ bilaterally but unable to palpate pedal pulses, cap refill ~ 2 sec, no pedal edema. Monitor is sinus tachycardia w/o any ectopy noted. SBP in the 90s to low 100s, with epinephrine, norepinephrine, phenylephrine, vasopressin & T4 drips infusing for blood pressure control. RESPIRATORY: CTAB w/o W/R/R, equal excursion, nonlaboured, intubated & mechanically ventilated, not breathing above set rate. GASTROINTESTINAL: Abdomen soft, bowel sounds not appreciated, OGT clamped. MUSCULOSKELETAL: No evident deformity or clubbing note. NEUROLOGICAL: Intubated w/o sedation, GCS 3T (E1 V1T M1) No response to voice. No response to localised or central noxious stimuli to all extremities. No eye opening. Pupils 6-7 mm nonreactive. No corneal reflex. No oculocephalic reflex noted. No cough reflex. (Dennis Catalan) Lab, Micro, Other Results Allergies Coded Allergies Type Severity Reaction Last Updated Verified No Known Allergies 10/14/16 No Recent Impressions Brain Flow Nuclear Medicine 10/15/16 0000 Signed Impressions: Service Date/Time: Saturday, October 15, 2016 14:16 - CONCLUSION: Absent cerebral perfusion which confirms brain if clinical criteria are met. Bakari Hutchins MD Pelvis X-Ray 10/13/161610 Signed Impressions: Service Date/Time: Thursday, October 13, 2016 15:54 - CONCLUSION: No acute disease. Maco Mason MD Head CT 10/13/161610 Signed Impressions: Service Date/Time: Thursday, October 13, 2016 16:14 - CONCLUSION: Diffuse subarachnoid blood. Maco Mason MD Chest X-Ray 10/13/161610 Signed Impressions: Service Date/Time: Thursday, October 13, 2016 15:54 - CONCLUSION: No acute disease. Maco Mason MD Chest CT 10/13/161610 Signed Impressions: Service Date/Time: Thursday, October 13, 2016 16:20 - CONCLUSION: No acute disease. Bakari Hutchins MD Cervical Spine CT 10/13/161610 Signed Impressions: Service Date/Time: Thursday, October 13, 2016 16:14 - CONCLUSION: No acute bony injury in the cervical spine. Maco Mason MD Abdomen/Pelvis CT 10/13/161610 Signed Impressions: Service Date/Time: Thursday, October 13, 2016 16:20 - CONCLUSION: No acute disease. Bakari Hutchins MD /////// 06:00 18:00 06:00 18:00 06:00 18:00 Intake Total 878 ml 5634 ml 9384 ml 6565 ml 27742 ml 619 ml Output Total 4550 ml 7100 ml 7150 ml 7850 ml 87615 ml 0 ml Balance -3672 ml -1466 ml 2234 ml -1285 ml 6807 ml 619 ml Intake IV Total 502 ml 5434 ml 9164 ml 6565 ml 66246 ml 619 ml Tube Feeding 316 ml Tube Irrigant 200 ml 300 ml Other 60 ml 220 ml Output Urine Total 4550 ml 7100 ml 6750 ml 7450 ml 28495 ml 0 ml Gastric Drainage Total 400 ml 400 ml 400 ml # Bowel Movements 0 0 0 0 Laboratory Tests Test 10/13/16 10/13/16 10/13/16 10/14/16 16:02 17:30 17:35 00:10 White Blood Count 16.4 TH/MM3 Red Blood Count 4.49 MIL/MM3 Hemoglobin 13.1 GM/DL Bedside Hemoglobin 13.6 G/DL Hematocrit 36.1 % Bedside Hematocrit 40.0 % Mean Corpuscular Volume 80.5 FL Mean Corpuscular Hemoglobin 29.2 PG Mean Corpuscular Hemoglobin 36.2 % Concent Red Cell Distribution Width 14.0 % Platelet Count 320 TH/MM3 Mean Platelet Volume 8.7 FL Neutrophils (%) (Auto) 56.6 % Lymphocytes (%) (Auto) 35.2 % Monocytes (%) (Auto) 6.7 % Eosinophils (%) (Auto) 1.2 % Basophils (%) (Auto) 0.3 % Neutrophils # (Auto) 9.3 TH/MM3 Lymphocytes # (Auto) 5.8 TH/MM3 Monocytes # (Auto) 1.1 TH/MM3 Eosinophils # (Auto) 0.2 TH/MM3 Basophils # (Auto) 0.0 TH/MM3 CBC Comment AUTO DIFF Differential Total Cells 100 Counted Neutrophils % (Manual) 50 % Band Neutrophils % 2 % Lymphocytes % 39 % Monocytes % 5 % Eosinophils % 3 % Neutrophils # (Manual) 8.7 TH/MM3 Metamyelocytes 1 % Differential Comment FINAL DIFF MANUAL Platelet Estimate NORMAL Platelet Morphology Comment NORMAL Prothrombin Time 11.0 SEC Prothromb Time International 1.0 RATIO Ratio Activated Partial 23.0 SEC Thromboplast Time Bedside Sodium 141 MMOL/L Bedside Potassium 2.6 MMOL/L Bedside Chloride 104 MMOL/L Bedside Blood Urea Nitrogen 8 MG/DL Bedside Creatinine 0.6 MG/DL Bedside Glucose 156 MG/DL Magnesium Level 2.1 MG/DL 2.5 MG/DL Blood Type O POSITIVE Antibody Screen NEGATIVE Blood Gas Puncture Site RT RADIAL Blood Gas Patient Temperature 98.6 Blood Gas HCO3 17 mmol/L Blood Gas Base Excess -7.7 mmol/L Blood Gas Oxygen Saturation 98 % Arterial Blood pH 7.32 Arterial Blood Partial 35 mmHg Pressure CO2 Arterial Blood Partial 251 mmHg Pressure O2 Arterial Blood Oxygen Content 17.8 Vol % Arterial Blood 0.7 % Carboxyhemoglobin Arterial Blood Methemoglobin 1.1 % Blood Gas Hemoglobin 12.5 G/DL Oxygen Delivery Device VENTILATOR Blood Gas Ventilator Setting SEE COMMENTS Blood Gas Inspired Oxygen 50 % Nasal Screen MRSA (PCR) MRSA NOT DETECTED Urine Specific [place] 1.008 Urine Osmolality 59 MOSM/KG Urine Random Sodium 13 MEQ/L Sodium Level 142 MEQ/L Potassium Level 3.7 MEQ/L Chloride Level 113 MEQ/L Carbon Dioxide Level 18.9 MEQ/L Anion Gap 10 MEQ/L Blood Urea Nitrogen 6 MG/DL Creatinine 0.80 MG/DL Estimat Glomerular Filtration 99 ML/MIN Rate Random Glucose 159 MG/DL Serum Osmolality 312 MOSM/KG Calcium Level 9.2 MG/DL Phosphorus Level 2.1 MG/DL Test 10/14/16 10/14/16 10/15/16 10/15/16 06:00 15:05 10:26 16:40 White Blood Count 20.3 TH/MM3 Red Blood Count 4.71 MIL/MM3 Hemoglobin 13.2 GM/DL Hematocrit 38.2 % Mean Corpuscular Volume 81.2 FL Mean Corpuscular Hemoglobin 28.0 PG Mean Corpuscular Hemoglobin 34.5 % Concent Red Cell Distribution Width 14.6 % Platelet Count 324 TH/MM3 Mean Platelet Volume 8.5 FL Sodium Level 148 MEQ/L 163 MEQ/L 176 MEQ/L 169 MEQ/L Potassium Level 3.4 MEQ/L 3.4 MEQ/L 3.3 MEQ/L 2.7 MEQ/L Chloride Level 120 MEQ/L 139 MEQ/L 154 MEQ/L 145 MEQ/L Carbon Dioxide Level 17.6 MEQ/L 15.3 MEQ/L 12.9 MEQ/L 16.7 MEQ/L Anion Gap 10 MEQ/L 9 MEQ/L 9 MEQ/L 7 MEQ/L Blood Urea Nitrogen 5 MG/DL 2 MG/DL 4 MG/DL 4 MG/DL Creatinine 0.72 MG/DL 0.86 MG/DL 1.38 MG/DL 1.40 MG/DL Estimat Glomerular Filtration 112 ML/MIN 91 ML/MIN 53 ML/MIN 52 ML/MIN Rate Random Glucose 227 MG/DL 192 MG/DL 111 MG/DL 146 MG/DL Calcium Level 8.2 MG/DL 7.7 MG/DL 7.9 MG/DL 8.2 MG/DL Phosphorus Level 0.3 MG/DL 0.9 MG/DL Magnesium Level 2.1 MG/DL 2.1 MG/DL Urine Specific [place] 1.004 Urine Osmolality 204 MOSM/KG Total Bilirubin 0.5 MG/DL Direct Bilirubin 0.1 MG/DL Indirect Bilirubin 0.4 MG/DL Aspartate Amino Transf 7 U/L (AST/SGOT) Alanine Aminotransferase 14 U/L (ALT/SGPT) Alkaline Phosphatase 86 U/L Total Protein 6.3 GM/DL Albumin 2.5 GM/DL Test 10/15/16 10/16/16 10/16/16 10/16/16 23:00 00:10 02:00 05:10 Sodium Level 157 MEQ/L 149 MEQ/L Potassium Level 2.6 MEQ/L 3.5 MEQ/L Chloride Level 131 MEQ/L 118 MEQ/L Carbon Dioxide Level 16.3 MEQ/L 21.9 MEQ/L Anion Gap 10 MEQ/L 9 MEQ/L Blood Urea Nitrogen 4 MG/DL 5 MG/DL Creatinine 1.39 MG/DL 1.46 MG/DL Estimat Glomerular Filtration 52 ML/MIN 49 ML/MIN Rate Random Glucose 319 MG/DL 384 MG/DL Calcium Level 7.3 MG/DL 6.6 MG/DL Protein Corrected Calcium 8.2 MG/DL 7.8 MG/DL Total Protein 5.5 GM/DL 4.8 GM/DL Blood Gas Puncture Site [facility] Blood Gas Patient Temperature 98.6 98.6 Blood Gas HCO3 15 mmol/L 22 mmol/L Blood Gas Base Excess -12.4 mmol/L -4.0 mmol/L Blood Gas Oxygen Saturation 84 % 86 % Arterial Blood pH 7.17 7.30 Arterial Blood Partial 41 mmHg 46 mmHg Pressure CO2 Arterial Blood Partial 44 mmHG 44 mmHG Pressure O2 Arterial Blood Oxygen Content 14.9 Vol % 13.6 Vol % Arterial Blood 0.7 % 0.9 % Carboxyhemoglobin Arterial Blood Methemoglobin 0.7 % 0.8 % Blood Gas Hemoglobin 12.6 G/DL 11.3 G/DL Oxygen Delivery Device VENTILATOR VENTILATOR Blood Gas Ventilator Setting SEE COMMENT SEE COMMENT Blood Gas Inspired Oxygen 80 % 80 % White Blood Count 5.2 TH/MM3 Red Blood Count 4.20 MIL/MM3 Hemoglobin 11.4 GM/DL Hematocrit 34.4 % Mean Corpuscular Volume 82.1 FL Mean Corpuscular Hemoglobin 27.2 PG Mean Corpuscular Hemoglobin 33.2 % Concent Red Cell Distribution Width 15.4 % Platelet Count 126 TH/MM3 Mean Platelet Volume 7.2 FL Neutrophils (%) (Auto) 61.0 % Lymphocytes (%) (Auto) 28.3 % Monocytes (%) (Auto) 7.6 % Eosinophils (%) (Auto) 2.8 % Basophils (%) (Auto) 0.3 % Neutrophils # (Auto) 3.2 TH/MM3 Lymphocytes # (Auto) 1.5 TH/MM3 Monocytes # (Auto) 0.4 TH/MM3 Eosinophils # (Auto) 0.1 TH/MM3 Basophils # (Auto) 0.0 TH/MM3 CBC Comment AUTO DIFF Differential Total Cells 100 Counted Neutrophils % (Manual) 31 % Band Neutrophils % 18 % Lymphocytes % 33 % Monocytes % 3 % Eosinophils % 3 % Neutrophils # (Manual) 3.2 TH/MM3 Metamyelocytes 12 % Differential Comment FINAL DIFF MANUAL Dohle Bodies PRESENT Platelet Estimate LOW Platelet Morphology Comment NORMAL Red Cell Morphology Comment NORMAL Vital Signs Date Time Temp Pulse Resp B/P Pulse Ox O2 Delivery O2 Flow Rate FiO2 10/16/16 08:00 100 10/16/16 08:00 140 10/16/16 08:00 98.2 140 14 102/36 80 10/16/16 06:00 148 10/16/16 04:00 100 10/16/16 04:00 153 10/16/16 04:00 99.1 153 14 116/47 10/16/16 03:47 95 100 10/16/16 02:00 140 10/16/16 00:00 128 10/16/16 00:00 80 10/16/16 00:00 95.0 128 14 122/52 92 10/15/16 23:43 95 80 10/15/16 22:00 132 10/15/16 20:38 95 40 10/15/16 20:00 142 10/15/16 20:00 97.5 142 14 106/74 95 10/15/16 20:00 50 10/15/16 19:00 94 Mechanical Ventilator 50 10/15/16 17:00 50 10/15/16 16:00 124 10/15/16 16:00 96.8 124 14 109/75 94 10/15/16 15:25 96 40 10/15/16 14:00 100 100 10/15/16 12:00 130 10/15/16 12:00 98.2 130 14 91/58 94 10/15/16 11:17 94 40 10/15/16 08:00 98.8 129 14 100/60 96 10/15/16 08:00 40 10/15/16 08:00 129 10/15/16 07:45 95 40 10/15/16 06:00 139 10/15/16 04:00 98.8 124 14 129/80 96 10/15/16 04:00 128 10/15/16 03:58 96 40 10/15/16 02:00 123 10/15/16 00:33 99 40 10/15/16 00:00 114 10/15/16 00:00 97.5 118 14 144/88 98 10/14/16 22:00 114 10/14/16 20:49 100 40 10/14/16 20:00 96.8 109 14 165/99 100 10/14/16 20:00 114 10/14/16 19:00 100 Mechanical Ventilator 40 10/14/16 18:00 114 10/14/16 16:02 100 40 10/14/16 16:00 97.2 119 14 167/90 100 10/14/16 16:00 115 10/14/16 14:00 123 10/14/16 12:00 97.2 124 14 158/86 100 10/14/16 12:00 109 10/14/16 11:19 100 40 10/14/16 10:00 123 10/14/16 08:00 133 10/14/16 08:00 96.3 124 14 102/53 100 10/14/16 07:50 99 40 10/14/16 07:00 40 Mechanical Ventilator 100 10/14/16 06:00 114 10/14/16 04:06 100 40 10/14/16 04:00 122 10/14/16 04:00 95.9 121 14 164/98 100 10/14/16 04:00 40 Mechanical Ventilator 100 10/14/16 02:00 107 10/14/16 00:52 100 40 10/14/16 00:00 102 10/14/16 00:00 94.5 102 14 129/85 100 10/13/16 22:00 58 10/13/16 22:00 100 100 10/13/16 20:13 100 40 10/13/16 20:00 58 14 121/57 100 Automatic Cuff 10/13/16 20:00 50 10/13/16 17:45 98.0 62 14 167/85 100 10/13/16 17:21 100 50 10/13/16 16:50 100 100 10/13/16 16:00 100 Nasal Cannula 2.00 (Dennis Catalan) Medical Decision Making Impression and Plan Impression: Subarachnoid hemorrhage. 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 Patient is likely to have additional thrombosed aneurysm. Moderate MCA vasospasm on initial CT angiogram. The CT scan of the head reveals early loss of reese-white interface in both hemispheres primarily along the temporal occipital region. The CT angiogram preliminary results indicates loss of blood flow past the level of the proximal carotid arteries and basilar artery. Findings suggest severe diffuse vasospasm. Initial ventriculostomy placement 2 sites unsuccessful. Sodium 149 Patient without any response to stimuli, appears to meet clinical criteria for brain . Brain flow study w/absent cerebral perfusion. Plan: Primary management per [employer] Server Consultant. Dr Cristina to do brain clinical assessment. (Dennis Catalan) Attending Statement The exam, history, and the medical decision-making described in the above note were completed with the assistance of the mid-level provider. I reviewed and agree with the findings presented. I attest that I had a [id number] encounter with the patient on the same day, and personally performed and documented my assessment and findings in the medical record. On my examination today, pupils remained 7-8 mm nonreactive Absent corneal, oculocephalic, and ocular vestibular responses No facial grimacing to deep pain Absent cough and gag response No spontaneous respirations No response to deep pain all extremities Cerebral blood flow study 10/15/16 results reviewed and consistent with brain The patient's clinical exam and cerebral blood flow study consistent with brain . Discussed with family in the intensive surgical care unit today. (Eder Cristina MD) Dennis Catalan Oct 16, 2016 09:31 Eder Cristina MD Oct 16, 2016 14:18
--- NOTE | 2016-10-16 10:06 | HHI.CCPN ---
Subjective Remarks/Hospital Course Hospital Course: This is a 36yF who presents as a Andra Carnes for altered mental status. she was reportedly found in her bathroom unresponsive. she was initially brought in as a trauma alert. CT brain demonstrated Black[place] 4 SAH. she was transferred to the ICU intubated, hypertensive. I evaluated the patient on arrival to the ICU ( delayed note entry). she is unable to provide any additional history. Subjective: 10/14: overnight, both pupils fixed and dilated. not breathing over the vent. repeat CTA head/neck with severe vasospasm with significant global areas of ischemia. nsgy unable to place EVD. very poor prognosis. Also now in DI, sodium rising, uop high. on multiple vasopressors to maintain cerebral perfusion pressure. clinically declining. 10/15: Unresponsive, no reflexes - absent cough, gag. Pupils dilated fixed at 6 mm. Plan apnea test and/or flow study today. Flow study demonstrates brain . Will correct electrolytes if possible to complete brain criteria and to allow consideration for donation. I suspect her worsening instability will preclude donation. Will increase DDAVP and try to stop DI. Will make DNR status, technically . 10/16: Osmolality corrected and clinical exam confirms flow study findings of brain . Oxygen diffusion deteriorating, incompatible with organ preservation. Update 1500 hrs: Despite aggressive efforts to maintain tissue perfusion we are unable to oxygenate patient. She continues to deteriorate and the family is at the bedside. Objective Vital Signs Date Time Temp Pulse Resp B/P Pulse Ox O2 Delivery O2 Flow Rate FiO2 10/16/16 09:14 78 100 10/16/16 08:00 140 10/16/16 08:00 98.2 14 102/36 10/15/16 19:00 Mechanical Ventilator 10/13/16 16:00 2.00 Intake and Output 10/15/16 10/15/16 10/16/16 08:00 16:00 00:00 Intake Total 5060 ml 5565 ml 24899 ml Output Total 3250 ml 3450 ml 51927 ml Balance 1810 ml 2115 ml 1653 ml Result Diagram: 10/16/16 0510 10/16/16 0510 Other Results Laboratory Tests Test 10/16/16 10/16/16 00:10 02:00 Blood Gas Puncture Site [facility] Blood Gas Patient Temperature 98.6 98.6 Blood Gas HCO3 15 mmol/L 22 mmol/L (22-26) (22-26) Blood Gas Base Excess -12.4 mmol/L -4.0 mmol/L (-2-2) (-2-2) Blood Gas Oxygen Saturation 84 % (90-100) 86 % (90-100) Arterial Blood pH 7.17 7.30 (7.380-7.420) (7.380-7.420) Arterial Blood Partial 41 mmHg (38-42) 46 mmHg (38-42) Pressure CO2 Arterial Blood Partial 44 mmHG 44 mmHG Pressure O2 (61-120) (61-120) Arterial Blood Oxygen Content 14.9 Vol % 13.6 Vol % (12.0-20.0) (12.0-20.0) Arterial Blood 0.7 % (0-4) 0.9 % (0-4) Carboxyhemoglobin Arterial Blood Methemoglobin 0.7 % (0-2) 0.8 % (0-2) Blood Gas Hemoglobin 12.6 G/DL 11.3 G/DL (12.0-16.0) (12.0-16.0) Oxygen Delivery Device VENTILATOR VENTILATOR Blood Gas Ventilator Setting SEE COMMENT SEE COMMENT Blood Gas Inspired Oxygen 80 % 80 % Imaging Last Impressions Pelvis X-Ray 10/13/161610 Signed Impressions: Service Date/Time: Thursday, October 13, 2016 15:54 - CONCLUSION: No acute disease. Maco Mason MD Head CT 10/13/161610 Signed Impressions: Service Date/Time: Thursday, October 13, 2016 16:14 - CONCLUSION: Diffuse subarachnoid blood. Maco Mason MD Chest X-Ray 10/13/161610 Signed Impressions: Service Date/Time: Thursday, October 13, 2016 15:54 - CONCLUSION: No acute disease. Maco Mason MD Chest CT 10/13/161610 Signed Impressions: Service Date/Time: Thursday, October 13, 2016 16:20 - CONCLUSION: No acute disease. Bakari Hutchins MD Cervical Spine CT 10/13/161610 Signed Impressions: Service Date/Time: Thursday, October 13, 2016 16:14 - CONCLUSION: No acute bony injury in the cervical spine. Maco Mason MD Abdomen/Pelvis CT 10/13/161610 Signed Impressions: Service Date/Time: Thursday, October 13, 2016 16:20 - CONCLUSION: No acute disease. Bakari Hutchins MD Neck CTA 10/13/16 0000 Signed Impressions: Service Date/Time: Thursday, October 13, 2016 16:35 - CONCLUSION: Normal examination. Maco Mason MD Head CTA 10/13/16 0000 Signed Impressions: Service Date/Time: Thursday, October 13, 2016 16:35 - CONCLUSION: 1. Small tubular aneurysm projecting off the left internal carotid terminus characteristic of a recently ruptured aneurysm which may be partially thrombosed. 2. Moderate to severe vasospasm worse in the left middle cerebral artery distribution. 3. origin of the right posterior cerebral artery. 4. Mild vasospasm vertebrobasilar circulation. Bakari Hutchins MD Objective Remarks Middle-aged female, lying in bed, unresponsive, intubated Neuro:Pupils fixed and dilated. No cough, gag, no spont respirations. GCS 3T Does not withdraw to pain. Does not follow commands. Lungs: Equal chest rise. PRvC. FiO2 40%. Heart: NL S2S2, no m,r. Extremities: Poorly perfused. A/P Assessment and Plan Assessment: 36-year-old female post-bleed day 2 status post Jones-Victor[place] 5, Blackwood 4 aneurysmal subarachnoid hemorrhage. Complicated by early severe cerebral vasospasm, severe malignant cerebral edema, likely transtentorial herniation. Discussed with neurosurgery, unlikely to have good prognosis. updated family at bedside. remains very critically ill. Active Problems: Aneurysmal subarachnoid hemorrhage, Jones-Victor[place] 5, [place] 4 Acute encephalopathy Acute hypoxic and hypercarbic respiratory failure Malignant Cerebral Edema Early Severe cerebral vasospasm Central Diabetes Insipidus Plan: goal cpp > 60 frequent neuro checks ddavp levo, epi, vaso to keep cpp nsgy consulted, maynor following nimodipine daily tcds npo scds maintain euvolemia. flow study apnea test Overall impression: Patient meets clinical and laboratory criteria of brain . Family (mother) has been informed. Critical Care 40 mins Dat Bonilla MD Oct 16, 2016 10:06
[2016-10-16] MEDS ORDERED: SODIUM BICARBONATE 8.4% INJ 50 ML ONE (10:12)
[2016-10-16] MEDS ORDERED: LACTATED RINGER'S 1000 ML INJ 1,000 ML IV ONE (10:15)
[2016-10-16 10:17] LABS: BLOOD GAS BASE EXCESS -11.7 mmol/L (-2-2); BLOOD GAS CARBOXYHEMOGLOBIN 0.5 % (0-4); BLOOD GAS HCO3 17 mmol/L (22-26); BLOOD GAS METHEMOGLOBIN 1.2 % (0-2); BLOOD GAS O2 HGB SATURATION 67 % (90-100); BLOOD GAS OXYGEN CONTENT 10.8 Vol % (12.0-20.0); BLOOD GAS PCO2 58 mmHg (38-42); BLOOD GAS PO2 35 mmHg (61-120); BLOOD GAS TOTAL HGB 11.5 G/DL (12.0-16.0); TEMP CORR TO 98.6
[2016-10-16 10:18] LABS: CRITICAL VALUE YES; OXYGEN DEVICE VENTILATOR
[2016-10-16 10:20] LABS: FIO2 100 %; STAT NO; VENT SETTINGS PRVC/AC
--- NOTE | 2016-10-16 10:48 | RADRPT ---
EXAM DATE/TIME: 10/16/2016 10:30 [facility] COMPARISON: BRAIN IMAGE WITH FLOW, October 15, 2016, 14:16. CTA BRAIN W 3D RECON, October 13, 2016, 16:35. CHEST SINGLE AP, October 13, 2016, 19:06. INDICATIONS : Hypoxemia. MEDICAL HISTORY : None. SURGICAL HISTORY : section. ENCOUNTER: Subsequent ACUITY: 3 days PAIN SCORE: Non-responsive. LOCATION: Bilateral chest FINDINGS: Endotracheal tube has come back some since the prior exam and is now nearly 7 cm above the olivier. Na sogastric tube descends in the stomach. Left subclavian central line is present good position. There is extensive left perihilar and left lower lobe airspace infiltrate and associated effusion. Moderate right perihilar infiltrate also present. Visualized cardiac contours are grossly satisfactory. CONCLUSION: Extensive developing infiltrates, left worse than right. Slightly high position of the endotracheal tube. Maco Mason MD on October 16, 2016 at 10:43 Board Certified Radiologist. This report was verified electronically.
[2016-10-16 11:52] LABS: BICARBONATE 21.9 MEQ/L (21.0-32.0); POTASSIUM 3.4 MEQ/L (3.5-5.1)
[2016-10-16 12:21] LABS: CALCIUM-PROTEIN CORRECTED 6.8 MG/DL (8.5-10.1)
[2016-10-16 14:18] LABS: BLOOD GAS BASE EXCESS -13.9 mmol/L (-2-2); BLOOD GAS CARBOXYHEMOGLOBIN 0.5 % (0-4); BLOOD GAS HCO3 14 mmol/L (22-26); BLOOD GAS O2 HGB SATURATION 47 % (90-100); BLOOD GAS OXYGEN CONTENT 5.8 Vol % (12.0-20.0); BLOOD GAS PCO2 46 mmHg (38-42); BLOOD GAS PO2 25 mmHg (61-120); BLOOD GAS TOTAL HGB 8.9 G/DL (12.0-16.0); CRITICAL VALUE YES; OXYGEN DEVICE VENTILATOR; TEMP CORR TO 98.6
[2016-10-16 14:19] LABS: DRAW SITE ART LINE; FIO2 100 %; STAT NO; ULNAR PULSE PRESENT; VENT SETTINGS PRVC/AC
[2016-10-16 14:23] LABS: DRAW SITE ART LINE
[2016-10-16] MEDS ORDERED: NOREPINEPHRINE-DEXTROSE DRIP 250 ML IV SCH (15:30)
[2016-10-16] MEDS ORDERED: VASOPRESSIN INJ 40 UNITS in DEXTROSE 5% IN WATER 100ML INJ 98 ML IV SCH ×2 (15:30)
--- NOTE | 2016-10-16 16:28 | DEATH SUM ---
Summary Demographics Date Pronounced : Oct 16, 2016 Time Of : 1430 Pronounced By: dr Bonilla, dr Cristina Preliminary Cause of : Brain Dat Bonilla MD Oct 16, 2016 16:28
--- NOTE | 2016-10-16 16:36 | HHI.DS ---
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 Physiologiocally she developed severe diabetes insipidus on 10/14/16 which proved unresponsive to desmopressin. The family was at the bedside for her brain declaration at 1430 hours and subsequent cardiac standstill thereafter. CBC/BMP: 10/16/16 0510 10/16/16 1056 Significant Findings Laboratory Tests Test 10/13/16 10/14/16 10/14/16 10/14/16 17:30 00:10 06:00 15:05 Blood Gas HCO3 17 mmol/L (22-26) Blood Gas Base Excess -7.7 mmol/L (-2-2) Arterial Blood pH 7.32 (7.380-7.420) Arterial Blood Partial 35 mmHg (38-42) Pressure CO2 Arterial Blood Partial 251 mmHg Pressure O2 (61-120) Urine Osmolality 59 MOSM/KG 204 MOSM/KG (300-1300) (300-1300) Chloride Level 113 MEQ/L 120 MEQ/L 139 MEQ/L (98-107) (98-107) (98-107) Carbon Dioxide Level 18.9 MEQ/L 17.6 MEQ/L 15.3 MEQ/L (21.0-32.0) (21.0-32.0) (21.0-32.0) Blood Urea Nitrogen 6 MG/DL (7-18) 5 MG/DL (7-18) 2 MG/DL (7-18) Random Glucose 159 MG/DL 227 MG/DL 192 MG/DL (74-106) (74-106) (74-106) Serum Osmolality 312 MOSM/KG (275-295) Phosphorus Level 2.1 MG/DL 0.3 MG/DL 0.9 MG/DL (2.5-4.9) (2.5-4.9) (2.5-4.9) White Blood Count 20.3 TH/MM3 (4.0-11.0) Sodium Level 148 MEQ/L 163 MEQ/L (136-145) (136-145) Potassium Level 3.4 MEQ/L 3.4 MEQ/L (3.5-5.1) (3.5-5.1) Calcium Level 8.2 MG/DL 7.7 MG/DL (8.5-10.1) (8.5-10.1) Test 10/15/16 10/15/16 10/15/16 10/16/16 10:26 16:40 23:00 00:10 Sodium Level 176 MEQ/L 169 MEQ/L 157 MEQ/L (136-145) (136-145) (136-145) Potassium Level 3.3 MEQ/L 2.7 MEQ/L 2.6 MEQ/L (3.5-5.1) (3.5-5.1) (3.5-5.1) Chloride Level 154 MEQ/L 145 MEQ/L 131 MEQ/L (98-107) (98-107) (98-107) Carbon Dioxide Level 12.9 MEQ/L 16.7 MEQ/L 16.3 MEQ/L (21.0-32.0) (21.0-32.0) (21.0-32.0) Blood Urea Nitrogen 4 MG/DL (7-18) 4 MG/DL (7-18) 4 MG/DL (7-18) Creatinine 1.38 MG/DL 1.40 MG/DL 1.39 MG/DL (0.50-1.00) (0.50-1.00) (0.50-1.00) Estimat Glomerular Filtration 53 ML/MIN (>89) 52 ML/MIN (>89) 52 ML/MIN (>89) Rate Random Glucose 111 MG/DL 146 MG/DL 319 MG/DL (74-106) (74-106) (74-106) Calcium Level 7.9 MG/DL 8.2 MG/DL 7.3 MG/DL (8.5-10.1) (8.5-10.1) (8.5-10.1) Aspartate Amino Transf 7 U/L (15-37) (AST/SGOT) Total Protein 6.3 GM/DL 5.5 GM/DL (6.4-8.2) (6.4-8.2) Albumin 2.5 GM/DL (3.4-5.0) Protein Corrected Calcium 8.2 MG/DL (8.5-10.1) Blood Gas HCO3 15 mmol/L (22-26) Blood Gas Base Excess -12.4 mmol/L (-2-2) Blood Gas Oxygen Saturation 84 % (90-100) Arterial Blood pH 7.17 (7.380-7.420) Arterial Blood Partial 44 mmHG Pressure O2 (61-120) Test 10/16/16 10/16/16 10/16/16 10/16/16 02:00 05:10 09:51 10:56 Blood Gas Base Excess -4.0 mmol/L -11.7 mmol/L (-2-2) (-2-2) Blood Gas Oxygen Saturation 86 % (90-100) 67 % (90-100) Arterial Blood pH 7.30 7.09 (7.380-7.420) (7.380-7.420) Arterial Blood Partial 46 mmHg (38-42) 58 mmHg (38-42) Pressure CO2 Arterial Blood Partial 44 mmHG 35 mmHg Pressure O2 (61-120) (61-120) Blood Gas Hemoglobin 11.3 G/DL 11.5 G/DL (12.0-16.0) (12.0-16.0) Hemoglobin 11.4 GM/DL (11.6-15.3) Hematocrit 34.4 % (35.0-46.0) Platelet Count 126 TH/MM3 (150-450) Band Neutrophils % 18 % (0-6) Metamyelocytes 12 % (0-1) Dohle Bodies PRESENT (NONE SEEN) Platelet Estimate LOW (NORMAL) Sodium Level 149 MEQ/L (136-145) Chloride Level 118 MEQ/L 109 MEQ/L (98-107) (98-107) Blood Urea Nitrogen 5 MG/DL (7-18) 6 MG/DL (7-18) Creatinine 1.46 MG/DL 1.81 MG/DL (0.50-1.00) (0.50-1.00) Estimat Glomerular Filtration 49 ML/MIN (>89) 38 ML/MIN (>89) Rate Random Glucose 384 MG/DL 402 MG/DL (74-106) (74-106) Calcium Level 6.6 MG/DL 5.3 MG/DL (8.5-10.1) (8.5-10.1) Protein Corrected Calcium 7.8 MG/DL 6.8 MG/DL (8.5-10.1) (8.5-10.1) Total Protein 4.8 GM/DL 3.7 GM/DL (6.4-8.2) (6.4-8.2) Blood Gas HCO3 17 mmol/L (22-26) Arterial Blood Oxygen Content 10.8 Vol % (12.0-20.0) Potassium Level 3.4 MEQ/L (3.5-5.1) Test 10/16/16 13:56 Blood Gas HCO3 14 mmol/L (22-26) Blood Gas Base Excess -13.9 mmol/L (-2-2) Blood Gas Oxygen Saturation 47 % (90-100) Arterial Blood pH 7.11 (7.380-7.420) Arterial Blood Partial 46 mmHg (38-42) Pressure CO2 Arterial Blood Partial 25 mmHg Pressure O2 (61-120) Arterial Blood Oxygen Content 5.8 Vol % (12.0-20.0) Blood Gas Hemoglobin 8.9 G/DL (12.0-16.0) Imaging Head CT and CTA - severe subarachnoid hemorrhage. Radionucliide brain flow study - no flow. PE at Discharge Hospital Course Hospital Course: This is a 36yF who presents as a Andra Carnes for altered mental status. she was reportedly found in her bathroom unresponsive. she was initially brought in as a trauma alert. CT brain demonstrated [place] 4 SAH. she was transferred to the ICU intubated, hypertensive. I evaluated the patient on arrival to the ICU ( delayed note entry). she is unable to provide any additional history. Subjective: 10/14: overnight, both pupils fixed and dilated. not breathing over the vent. repeat CTA head/neck with severe vasospasm with significant global areas of ischemia. nsgy unable to place EVD. very poor prognosis. Also now in DI, sodium rising, uop high. on multiple vasopressors to maintain cerebral perfusion pressure. clinically declining. 10/15: Unresponsive, no reflexes - absent cough, gag. Pupils dilated fixed at 6 mm. Plan apnea test and/or flow study today. Flow study demonstrates brain . Will correct electrolytes if possible to complete brain criteria and to allow consideration for donation. I suspect her worsening instability will preclude donation. Will increase DDAVP and try to stop DI. Will make DNR status, technically . 10/16: Osmolality corrected and clinical exam confirms flow study findings of brain . Oxygen diffusion deteriorating, incompatible with organ preservation. Update 1500 hrs: Despite aggressive efforts to maintain tissue perfusion we are unable to oxygenate patient. She continues to deteriorate and the family is at the bedside. Pt Condition on Discharge: Deteriorating Dat Bonilla MD Oct 16, 2016 16:36
[2016-10-16] MEDS ORDERED: DESMOPRESSIN ACETATE 4 MCG/ML VIAL IV PUSH SCH (18:00)
== END 2016-10-16 18:06 | disposition expired | DRG 23 ==
LOC: NEPI 16:01 → EDBD 17:21 → N03B 17:21
PROVIDERS: ADMIT Internal Medicine Critical Care Medicine; ATTEND Internal Medicine Critical Care Medicine
PROC: 0BH17EZ Insertion of Endotracheal Airway into Trachea, Via Natural or Artificial Opening (ICD-10-PCS; 2016-10-13)
PROC: 03HY32Z Insertion of Monitoring Device into Upper Artery, Percutaneous Approach (ICD-10-PCS; 2016-10-13)
PROC: 5A1945Z Respiratory Ventilation, 24-96 Consecutive Hours (ICD-10-PCS; 2016-10-13)
PROC: 05H633Z Insertion of Infusion Device into Left Subclavian Vein, Percutaneous Approach (ICD-10-PCS; 2016-10-13)
PROC: 009600Z Drainage of Cerebral Ventricle with Drainage Device, Open Approach (ICD-10-PCS; principal; 2016-10-14)
PROC: 03HY32Z Insertion of Monitoring Device into Upper Artery, Percutaneous Approach (ICD-10-PCS; 2016-10-16)
DX: I60.0 Nontraumatic subarachnoid hemorrhage from carotid siphon and bifurcation (principal); G93.49 Other encephalopathy; G93.5 Compression of brain; G93.6 Cerebral edema; E23.2 Diabetes insipidus; J96.01 Acute respiratory failure with hypoxia; J96.02 Acute respiratory failure with hypercapnia; I95.9 Hypotension, unspecified; I16.1 Hypertensive emergency; I67.848 Other cerebrovascular vasospasm and vasoconstriction; N17.9 Acute kidney failure, unspecified; R40.2422 Glasgow coma scale score 9-12, at arrival to emergency department; I10 Essential (primary) hypertension; Z66 Do not resuscitate; R40.20 Unspecified coma
CPT/HCPCS: 31500; 36556; 36600; 61210; 70450; 70496; 70498; 71010; 71260; 72125; 72170; 74177; 78606; 80048; 80076; 81003; 82435; 82565; 82805; 82947; 83735; 83930; 83935; 84100; 84132; 84155; 84295; 84300; 84520; 84588; 84703; 85007; 85027; 85610; 85730; 86850; 86900; 86901; 87641; 94002; 94003; A9539; C9113; J0171; J1953; J2150; J2250; J2370; J2597; J3010; J3480; J7030; J7040; J7050; J7060; J7070; J7120; L0172; Q9967